=== PATIENT | female | born 1965 | race Caucasian/White ===

== ENCOUNTER 2020-04-23 10:07 | Outpatient (REF) | payer OTHER, SELFPAY ==
--- NOTE | 2020-04-23 | XR_ITS ---
EXAMINATION: XR SACRUM AND COCCYX CLINICAL INFORMATION: Lumbosacral pain COMPARISON: None TECHNIQUE: 3 views of the sacrum/coccyx FINDINGS: There is no fracture or cortical disruption. Appropriate alignment of the sacrum. The coccyx is well aligned. Lumbosacral junction is intact. The sacroiliac joints are symmetric. The hips are well aligned. The bowel gas pattern is unremarkable. Left pelvic phleboliths are noted. XR/XR sacrum coccyx min 2V IMPRESSION: No suspicious findings of the sacrum/coccyx. Appropriate appearance of the sacroiliac joints.
== END 2020-04-23 10:08 | disposition home or self-care (01) ==
LOC: HO.HMGCX 10:07
PROVIDERS: PCP Internal Medicine; Visit Provider Internal Medicine
DX: M54.5 Low back pain (principal)
CPT/HCPCS: 72220

== ENCOUNTER 2021-05-18 11:14 | Outpatient (REF) | payer OTHER, SELFPAY ==
--- NOTE | ~2021-05-18 | MM_ITS ---
EXAMINATION: MM SCREENING DIGITAL BREAST TOMOSYNTHESIS, BILATERAL CLINICAL INFORMATION: Screening. Asymptomatic. The lifetime risk of breast cancer based on the Tyrer-Cuzick Model is 4.3%. COMPARISON: Mammography: January 24, 2020 and July 30, 2018 TECHNIQUE: Digital breast tomosynthesis is performed in both the craniocaudal and mediolateral oblique views along with computer-aided detection (CAD). Synthesized 2D images are generated from the tomosynthesis. FINDINGS: The breasts are heterogeneously dense, which may obscure small masses (ACR BI-RADS breast composition Category c). There are no significant masses, abnormal calcifications, or other abnormalities. MM/MM tomosynthesis screening BI IMPRESSION: There are no significant changes from prior study. ASSESSMENT: BI-RADS 1: Negative RECOMMENDATION: Routine annual mammography screening. This patient's information was entered into a reminder system with a target due date for their next mammogram.
== END 2021-05-18 11:15 | disposition home or self-care (01) ==
LOC: HO.MAMMO 11:14
PROVIDERS: Visit Provider Internal Medicine
DX: Z12.31 Encounter for screening mammogram for malignant neoplasm of breast (principal)
CPT/HCPCS: 77063; 77067

== ENCOUNTER 2021-10-08 07:35 | Outpatient (REF) | payer OTHER, SELFPAY ==
[2021-10-08 13:00] LABS: Vitamin D 25-OH Total 54.5 ng/mL (>30)
[2021-10-08 13:22] LABS: Alanine Aminotransferase 11 U/L (0-31); Anion Gap 13 (12-20); Aspartate Amino Transferase 19 U/L (5-31); Blood Urea Nitrogen 20 mg/dL (9-16); Carbon Dioxide 26 mmol/L (22-29); Chloride 108 mmol/L (96-108); Cholesterol 210 mg/dL; Estimated Glomerular Filt Rate > 60; Glucose Fasting 96 mg/dL (60-99); HDL Cholesterol 76 mg/dL; LDL Cholesterol Calculated 120 mg/dl; Potassium 4.3 mmol/L (3.3-5.1); Sodium 143 mmol/L (135-145); Triglycerides 73 mg/dL
== END 2021-10-08 07:36 | disposition home or self-care (01) ==
LOC: HO.HMGCLDS 07:35
PROVIDERS: Visit Provider Internal Medicine
DX: Z00.01 Encounter for general adult medical examination with abnormal findings (principal); I10 Essential (primary) hypertension
CPT/HCPCS: 36415; 80048; 80061; 82306; 84450; 84460; 86787

== ENCOUNTER → 2022-03-24 12:19 | Outpatient (BNVA) | payer OTHER, SELFPAY | PROVIDERS: PCP Internal Medicine; Referring Provider Internal Medicine; Visit Provider Physician Assistant | DX: Z01.818 Encounter for other preprocedural examination (principal); R12 Heartburn | CPT/HCPCS: 99202 ==

== ENCOUNTER 2022-05-20 10:45 | Outpatient (REF) | payer OTHER, SELFPAY ==
--- NOTE | ~2022-05-20 | MM_ITS ---
EXAMINATION: MM SCREENING DIGITAL BREAST TOMOSYNTHESIS, BILATERAL CLINICAL INFORMATION: Screening. Asymptomatic. The lifetime risk of breast cancer based on the Tyrer-Cuzick Model is 8%. COMPARISON: Mammography: 05/18/2021, 01/24/2020, 07/30/2018 (baseline) TECHNIQUE: Digital breast tomosynthesis is performed in both the craniocaudal and mediolateral oblique views along with computer-aided detection (CAD). Synthesized 2D images are generated from the tomosynthesis. FINDINGS: There are scattered areas of fibroglandular density (ACR BI-RADS breast composition Category b). There is a 1 cm smooth nodule with fine incomplete rim calcification or tattoo artifact right axilla 11 cm from the nipple on the MLO view, not seen on prior studies. No visible fatty hilus. Lesion is close to the skin and could be dermal in origin. Patient will be recalled for additional imaging. Otherwise, there is no axillary adenopathy and skin contours are smooth. The breast parenchymal pattern is similar to prior exams. There is no developing density or interval mass or architectural abnormality. No abnormal calcifications. MM/MM tomosynthesis screening BI IMPRESSION: Right: -1 cm nodule with peripheral rim calcification or tattoo artifact residing close to skin. No visible fatty hilus. Possible dermal lesion. Left: -No mammographic evidence of malignancy. ASSESSMENT: BI-RADS 0: Incomplete - Need Additional Imaging Evaluation RECOMMENDATION: 1. Assess for dermal lesion and obtain MLO view with dermal marker if applicable. 2. Otherwise, targeted right ultrasound. 3. Radiology department staff will contact the patient for additional imaging. This patient's information was entered into a reminder system with a target due date for their next mammogram.
== END 2022-05-20 10:46 | disposition home or self-care (01) ==
LOC: HO.MAMMO 10:45
PROVIDERS: PCP Internal Medicine; Visit Provider Internal Medicine
DX: Z12.31 Encounter for screening mammogram for malignant neoplasm of breast (principal)
CPT/HCPCS: 77063; 77067

== ENCOUNTER 2022-06-03 12:42 | Outpatient (REF) | payer OTHER, SELFPAY ==
--- NOTE | ~2022-06-03 | US_ITS ---
EXAMINATION: MM DIAGNOSTIC DIGITAL BREAST TOMOSYNTHESIS, RIGHT CLINICAL INFORMATION: Right breast nodule with calcifications. COMPARISON: Mammography: 05/20/2022 and studies dating back to 07/30/2018. TECHNIQUE: Digital breast tomosynthesis is performed. 2D images are generated from the tomosynthesis. The following views are obtained: Right mediolateral oblique. FINDINGS: The breasts are heterogeneously dense, which may obscure small masses (ACR BI-RADS breast composition Category c). There is persistence of a 1 cm circumscribed density which appears to lie at the level of the skin surface. There appear to be a few calcifications present. Targeted ultrasound evaluation to palpable area in the axilla demonstrated a heterogeneous and hypoechoic lesion, which may lie within breast tissue, extending superficially to the hypodermis and dermis. The lesion measures 8 x 6 x 9 mm in size. No definite pore to the skin is identified. This could represent a sebaceous cyst or epidermal inclusion cyst. There is a small amount of vascular flow present. The lesion is wider than it is tall. No distal sound shadowing is seen. Hamartoma could also have this appearance and possible malignancy would be much less likely. Patient is being scheduled to see a line installation supervisor according to the patient. Results are discussed with the patient at time of visit. US/US breast RT limited IMPRESSION: Mammographic finding is seen to correspond to a lesion likely representing sebaceous cyst or epidermal inclusion cyst. ASSESSMENT: BI-RADS 3: Probably benign. RECOMMENDATION: Clinical follow up This patient's information was entered into a reminder system with a target due date for their next mammogram.
== END 2022-06-03 12:43 | disposition home or self-care (01) ==
LOC: HO.MAMMO 12:42
PROVIDERS: PCP Internal Medicine; Visit Provider Internal Medicine
DX: R92.1 Mammographic calcification found on diagnostic imaging of breast (principal)
CPT/HCPCS: 76642; 77061; 77065

== ENCOUNTER 2022-08-16 09:43 | Outpatient (REF) | payer OTHER, SELFPAY ==
[2022-08-19 05:24] LABS: HPV mRNA E6/E7 rflx Not Detected (Not Detected)
== END 2022-08-16 09:44 | disposition home or self-care (01) ==
LOC: HO.LNP 09:43
PROVIDERS: PCP Internal Medicine; Visit Provider Advanced Practice Midwife
DX: Z01.419 Encounter for gynecological examination (general) (routine) without abnormal findings (principal); Z11.51 Encounter for screening for human papillomavirus (HPV)
CPT/HCPCS: 87624; 88142

== ENCOUNTER 2022-11-09 10:18 | Day surgery (SDC) | payer OTHER, SELFPAY ==
[2022-11-04 16:02] VITALS: BMI 19.7
[2022-11-09 10:33] VITALS: BP 138/81; PULSE 66; RESP 16; TEMP 36.6; O2SAT 100
--- NOTE | 2022-11-09 10:53 | P.CONAN_ITS ---
[facility] Active Problems Active Problems: All Active Problems (Updated 08/24/22 @ 15:51 by Jody Gamez CNM) Breast cancer screening (Acute) Cervical cancer screening (Acute) Well woman exam with routine gynecological exam (Acute) Former smoker (Acute) Heartburn (Acute) Colon cancer screening (Acute) Past Medical History Medical History Acute anxiety Epistaxis, recurrent Former smoker Heartburn Tobacco abuse disorder Family History Family History Maternal Grandmother Alzheimers disease Family history of problems with anesthesia: No Surgical History Surgical History No pertinent past surgical history History of Problems with Anesthesia: No Social History Social History (Updated 08/16/22 @ 09:54 by JAMES North) Housing: House Alcohol intake: current Alcohol intake frequency: holidays/special occasions only Patient Tobacco Use Status: Former Tobacco user Years Smoked: 30 e-Cigarette/Vaping Use: Never Used Second Hand Smoke Exposure: No Use of substances other than those prescribed or required for medical reasons: No Advance Directives: No Advance Directives Information Provided: Yes Nutrition Risks: No Nutritional Risk Current occupational status: unemployed Cognitive needs: No Hearing needs: No Vision needs: No Meds Allergies Allergy/AdvReac Type Severity Reaction Status Date / Time No Known Allergies Allergy Verified 08/16/22 09:47 Exam Exam Date and Time: November 09, 2022 1053 Height,Weight and Vital Signs: Height 5 ft 7 in Weight 57.153 kg Last Vital Signs Temp 97.8 F 11/09/22 10:33 Pulse 66 11/09/22 10:33 Resp 16 11/09/22 10:33 BP 138/81 11/09/22 10:33 Pulse Ox 100 11/09/22 10:33 O2 Del Method Room Air 11/09/22 10:33 Airway Mallampati Class: II TM Dist: >3cm Neck ROM: Full Assessment and Plan Assessment Anesthesia Assessment: Anesthesia Plan Discussed and Chart Reviewed Final Anesthetic Review Family History of Problems with Anesthesia: No History of Problems with Anesthesia: No NPO: Yes ASA Class: II Final Preanesthetic Review: No Changes in Pt Med Stat, Meds/Allgs Chart Reviewed , Consent Obtained/Reviewed and Anes Risks/Benef Reviewed Patient Risk: Low Procedure Risk: Low Anesthetic Plan Anesthetic Plan: MAC: Disposition: Standard PACU
--- NOTE | 2022-11-09 10:57 | MHC.SHP ---
Pre-Procedural Eval Section A Date of Service: 11/09/22 Section B Chief Complaint: Heartburn Relevant Family History (Specify if Yes): No Relevant Social History: None Present Medications: see Short Stay Collaborative assessment Medical History: Significant History (Acute anxiety Epistaxis, recurrent Former smoker Heartburn Tobacco abuse disorder) History of Previous Operations: No relevant previous surgery Allergies: Allergies Allergy/AdvReac Type Severity Reaction Status Date / Time No Known Allergies Allergy Verified 08/16/22 09:47 Review of Systems Sugical H&P ROS: Negative: Constitution, Cardiovascular, Respiratory, Neurological, Psychiatric, Hem-Onc, Allergic/Immunologic, Gastrointestinal, Genitourinary, Musculoskeletal, Integumentary, Endocrine and Eyes/Ears/Nose/Throat Exam Surgical H&P Exam: Normal: HEENT, Normal: Heart, Normal: Lungs, Normal: Extremities, Normal: Abdomen, Normal: Skin and Normal: Neurological Plan Diagnosis/Plan: Unchanged I have reviewed the history and physical and performed a pertinent physical examination on my patient. No changes have occurred unless specified. Time Spent With Patient Time: Total time managing care of this patient today ____ minutes.
--- NOTE | 2022-11-09 11:13 | W.PM.OPN ---
Operative Note Operative Note Date of Service: 11/09/22 Narrative: Procedure Description: EGD Indication: heartburn Anesthesia: MAC FLEXIBLE TRANSORAL UPPER GASTROINTESTINAL ENDOSCOPY UPPER ENDOSCOPY Consent: Indications for the procedure and potential complications of bleeding, perforation, reaction to medications and missed diagnosis were discussed with the patient and informed consent was obtained. Instrument: Olympus GIF H 190 J mid size upper endoscope Monitoring: Vital signs and clinical assessment, continuous EKG monitoring, Pulse oximetry, Carbon Dioxide monitoring and blood pressure monitoring were done throughout the procedure. Procedure: The patient was placed in the left lateral decubitis position and pre-procedure medications were administered and a bite block was placed. The endoscope was inserted into the mouth and advanced under direct vision to the third part of duodenum. A careful inspection was made as the upper endoscope was withdrawn including a retroflexed examination of the proximal stomach; Findings and interventions are described below. Findings: Larynx:normal Esophagus: GE junction at 37 cm, diaphragm hiatus at 37 cm, mild inflammation at GEJ, bx taken also from distal and proximal esophagus Stomach: Patchy gastric erythema. Biopsies were obtained. Grade 3 flap valve on retroflexed examination of the cardia. LEs was lax. Duodenum: Mild bulbar erythema, bx taken Intervention: Biopsies as noted above Impression/Findings: mild duodenitis and gastritis lax LES PLAN: GERD precautions cont with PPi as it is helping
[2022-11-09 11:33] VITALS: BP 104/63; PULSE 94; RESP 17; TEMP 36.2; O2SAT 99
[2022-11-09 11:49] VITALS: BP 115/74; PULSE 60; RESP 17; TEMP 36.4; O2SAT 97
== END 2022-11-09 12:36 | disposition home or self-care (01) ==
PROVIDERS: PCP Internal Medicine; Visit Provider Internal Medicine Gastroenterology
PROC: 0DJ08ZZ Inspection of Upper Intestinal Tract, Via Natural or Artificial Opening Endoscopic (ICD-10-PCS; CPT 43235; principal; 2022-11-09 12:10)
DX: K21.9 Gastro-esophageal reflux disease without esophagitis (principal); K29.50 Unspecified chronic gastritis without bleeding; K29.80 Duodenitis without bleeding; K22.4 Dyskinesia of esophagus; K44.9 Diaphragmatic hernia without obstruction or gangrene; F41.1 Generalized anxiety disorder; R04.0 Epistaxis; Z79.899 Other long term (current) drug therapy; Z87.891 Personal history of nicotine dependence
CPT/HCPCS: 43239; 88305; 88342

== ENCOUNTER 2022-12-28 11:25 | Outpatient (AMB) | payer OTHER, SELFPAY ==
--- NOTE | 2022-12-28 11:27 | A.OFFVIS_ITS ---
Intake Vital Signs 12/28/22 11:30 Height 5 ft 7 in Weight 124 lb BMI 19.4 BP 135/75 Blood Pressure Location Lt brachial Position Sitting Pulse 74 Intake Visit Reasons: S/p egd-reyes Intake Note: Patient follow up fro EGD results. Patient denies any GI issues. 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 She has been taking pantoprazole 40 mg daily with very good response as well as had discontinued tobacco. She is overall feeling well however if she does omit PPI her symptoms recur. Appetite is good Here reviewed procedure report and pathology She had a Cologuard negative August of this year repeat colon cancer screening 2025 No nausea, vomiting, hematemesis, hematochezia fever chills PFSH Medical History Acute anxiety Epistaxis, recurrent Former smoker Heartburn Tobacco abuse disorder Surgical History History of esophagogastroduodenoscopy (EGD) No pertinent past surgical history Family History Maternal Grandmother Alzheimers disease Social History Housing: House Alcohol intake: current Alcohol intake frequency: holidays/special occasions only Patient Tobacco Use Status: Former Tobacco user Years Smoked: 30 e-Cigarette/Vaping Use: Never Used Second Hand Smoke Exposure: No Current occupational status: unemployed Cognitive needs: No Hearing needs: No Vision needs: No Female Reproductive History Menstrual Age of Menarche: 19 Review of Systems Const All systems reviewed & are unremarkable except as noted in HPI and below Physical Exam Vital Signs: Last Vital Signs Pulse 74 12/28/22 11:30 BP 135/75 12/28/22 11:30 BMI result Body Mass Index 19.4 Const General: cooperative, healthy appearing, comfortable and no acute distress Orientation/consciousness: patient oriented x3 Limitations: no limitations Neuro General: patient oriented x3 Psych Appearance: grossly normal and well kempt Mental Status: mental status grossly normal Speech and movement: Normal speech and movement present and Clear speech present Affect: normal affect Attitude: cooperative Thought content: Normal thought content present Insight: Good insight present (Psych) Judgement: Good judgement present (Psych) Results Reviewed Results Reviewed: Impression/Findings: mild duodenitis and gastritis lax LES PLAN: GERD precautions cont with PPi as it is helping Name:Francesca Leyva Age/Sex: 57/F Attending: Annette Reyes MD : [id number] Submitted by: Annette Reyes MD Copies to: Caprice Alva MD MR #: [id number] ? Status: [facility] [place], [place] Collected: 11/09/22 Location: [facility] Received: 11/09/22 Diagnosis A.? Duodenum, biopsy:? Duodenal mucosa within normal limits. B.? Stomach, biopsy:? Antral-type and oxyntic mucosa with moderate chronic inactive inflammation; no Helicobacter organisms seen. C.? GE junction, biopsy: - Cardiofundic-type mucosa with mild chronic inactive inflammation; no intestinal metaplasia seen. - Squamous mucosa within normal limits. D.? Esophagus, distal, biopsy: - Small fragment of cardiofundic-type mucosa with mild chronic inactive inflammation; no intestinal metaplasia seen. - Squamous epithelium within normal limits. E.? Esophagus, proximal, biopsy:? Squamous epithelium within normal limits; no inflammation seen. Clinical History Pre-Op Dx:? GERD Post-Op Dx: Lax LES, gastritis Assessment & Plan Assessment & Plan (1) Heartburn: Comment: His very good response with pantoprazole 40 mg Code(s): R12 - Heartburn Plan: Continue PPI Avoid culprits (2) Colon cancer screening: Comment: Negative Cologuard 2022 Normal bowel pattern Code(s): Z12.11 - Encounter for screening for malignant neoplasm of colon Plan: Colon cancer screening due 2025 Plan Continue ppi reflux precautions low fodmap colon cancer screening 2025 Medications: Changed From pantoprazole take 1 hour ac 40 mg PO DAILY PRN 90 tabs 0RF heartburn To pantoprazole take 1 hour ac 40 mg PO DAILY PRN 90 tabs 2RF heartburn 30 days Patient Instructions: Pleasant 57-year-old female persistent acid reflux follows up after recent EGD We reviewed reflux precautions She will continue pantoprazole 40 mg daily and avoid culprits Encouraged to call questions or concerns Coding Level of Care Code Est Pt Level 3 (21137) Diagnoses Heartburn R12 Colon cancer screening Z12.11 Time Spent (min) 20
[2022-12-28 11:30] VITALS: BP 135/75; PULSE 74; BMI 19.4
== END 2022-12-28 13:59 | disposition home or self-care (01) ==
PROVIDERS: PCP Internal Medicine; Visit Provider Physician Assistant
DX: K21.9 Gastro-esophageal reflux disease without esophagitis (principal); R12 Heartburn
CPT/HCPCS: 99213

== ENCOUNTER → 2022-12-28 11:25 | Outpatient (BNVA) | payer OTHER, SELFPAY | PROVIDERS: PCP Internal Medicine; Visit Provider Physician Assistant | DX: Z12.11 Encounter for screening for malignant neoplasm of colon (principal); R12 Heartburn; Z87.891 Personal history of nicotine dependence | CPT/HCPCS: 99212 ==

== ENCOUNTER 2023-04-26 12:26 | Outpatient (AMB) | payer OTHER, SELFPAY ==
--- NOTE | 2023-04-26 12:42 | MHC.PC.OV ---
Vital Signs 04/26/23 12:44 Height 5 ft 7 in Weight 127 lb BMI 19.9 BP 108/70 Blood Pressure Location Lt brachial Position Sitting Pulse 99 Pulse Source Pulse Oximeter Pulse Oximetry (%) 98 Oxygen Delivery Method Room Air Intake Visit Reasons: annual PE- NEEDS PHQ9+THRIVE Intake Note: Patient here for annual physical. no new issues. Allergies No Known Allergies Allergy (Verified 07/14/23 05:12) Medication List - Last Reconciled 04/26/23 by Caprice Alva MD pantoprazole 40 mg PO DAILY PRN 30 days varenicline (Chantix) 1 mg PO BID 90 days Tobacco use date assessed: 04/26/23 Dental Screening Dental Screen Date: 04/26/23 Did you have a dental visit in the last 12 months?: Yes Did you have a dental problem in the last 6 months where you did not have access to dental care?: No Was dental information given to patient?: Patient has dentist HPI annual PE- NEEDS PHQ9+THRIVE HPI Details 58-year-old lady here today for her physical exam. She is up-to-date with her screening mammogram due again next month. Had a negative Cologuard test done earlier this year. Goes to [facility] for routine Pap and pelvic exam, last Pap was done earlier this year with negative findings. She has had COVID vaccines in the past but does not want to get a booster nor does she want to get any further vaccinations. She is a former smoker, able to quit with the help of Chantix. Has chronic GERD, controlled on pantoprazole, had an upper endoscopy done by Dr. Waterman earlier this year. [facility] Medical History Former smoker Tobacco abuse disorder Heartburn Acute anxiety Epistaxis, recurrent Surgical History History of esophagogastroduodenoscopy (EGD) No pertinent past surgical history Family History Maternal Grandmother Alzheimers disease Social History Housing: House Alcohol intake: current Alcohol intake frequency: holidays/special occasions only Patient Tobacco Use Status: Former Tobacco user Years Smoked: 30 e-Cigarette/Vaping Use: Never Used Second Hand Smoke Exposure: No Current occupational status: unemployed Cognitive needs: No Hearing needs: No Vision needs: No Female Reproductive History Menstrual Age of Menarche: 19 Questionnaire PHQ-9 Over the last 2 weeks, how often have you been bothered by any of the following problems? 1. Little interest or pleasure in doing things: not at all 2. Feeling down, depressed, or hopeless: not at all 3. Trouble falling or staying asleep, or sleeping too much: not at all 4. Feeling tired or having little energy: not at all 5. Poor appetite or overeating: not at all 6. Feeling bad about yourself - or that you are a failure or have let yourself or your family down: not at all 7. Trouble concentrating on things, such as reading the newspaper or watching television: not at all 8. Moving or speaking so slowly that other people could have noticed. Or the opposite - being so fidgety or restless that you have been moving around a lot more than usual: not at all 9. Thoughts that you would be better off or of hurting yourself in some way: not at all Total score: 0 Depression Screening Interpretation: Negative Depression Screening Done: Yes 63195 - PHQ-9 Billing: Yes Source: Developed by Drs. Devonte Oakley, Angelita Renner, Serge Whitaker and colleagues, with an educational jasiel from [employer]. Thrive Questionnaire Date Thrive assessed: 04/26/23 I am a: Patient What is your living situation today?: I have a steady place to live Within the past 12 months, did the food you bought not last and you didn't have the money to get more?: Never true Within the past 12 months, did you worry whether your food would run out before you got money to buy more?: Never true Do you have trouble paying for medicines?: No Do you have trouble getting transportation to medical appointments?: No Do you have trouble paying your heating and electricity bill?: No Do you have trouble taking care of your child, family member or friend?: No Do you have trouble with day-to-day activities such as bathing, preparing meals, shopping, managing finances, etc.?: No Are you currently unemployed and looking for a job?: No Are you interested in more education?: No Please select the resources that you would like help with: None AUDIT C Alcohol Use Questionnaire (AUDIT-C) 1. How often do you have a drink containing alcohol?: 2-4 times a month 2. How many drinks containing alcohol do you have on a typical day when you are drinking?: 1 or 2 3. How often do you have six or more drinks on one occasion?: Never Total Score: 2 Score Reviewed/Action Taken: No CARL-7 AMB Questionnaire CARL-7 Date CARL - 7 assessed: 04/26/23 Feeling nervous, anxious, or on edge: 0 = Not at all Not being able to stop or control worryin = Not at all Worrying too much about different things: 0 = Not at all Trouble relaxin = Not at all Being so restless that it is hard to sit still: 0 = Not at all Becoming easily annoyed or irritable: 0 = Not at all Feeling afraid as if something awful might happen: 0 = Not at all Total CARL-7 score (0-4 normal; 5-9 mild; 10-14 moderate; 15-21 severe): 0 Source: Developed by Drs. Devonte Oakley, Angelita Renner, Serge Whitaker and colleagues, with an educational jasile from [employer]. CARL-7 Assessment Billing CARL-7 Assessment Tool: CARL-7 Assessment 98512 Review of Systems Const Denies body aches, Denies fever(s), Denies headache(s) and Denies weakness Eyes Details: Wears cheaters Reports no additional complaints ENT Denies dizziness, Denies headache(s), Denies nasal congestion, Denies nasal discharge and Denies sore throat Card Denies chest pain, Denies lightheadedness and Denies dyspnea Resp Denies chest congestion, Denies cough and Denies dyspnea GI Denies melena, Denies bloating, Denies hematochezia, Denies change in bowel habits and Reports heartburn (Occasional, takes pantoprazole) Reports no additional complaints Musc Reports no additional complaints Skin/Breast Denies lesions and Denies rash Neuro Denies dizziness, Denies headache(s) and Denies weakness Psych Reports no additional complaints Endo Reports no additional complaints Mika/Lymph Denies easy bleeding and Denies easy bruising Aller/Immun Reports no additional complaints Physical exam (Primary Care) Vital Signs: Last Vital Signs Pulse 99 04/26/23 12:44 BP 108/70 04/26/23 12:44 Pulse Ox 98 04/26/23 12:44 Oxygen Delivery Method Room Air 04/26/23 12:44 BMI result Body Mass Index 19.9 Tobacco/Smoking Status: Tobacco use Status Tobacco use date assessed 04/26/23 04/26/23 12:47 Patient Tobacco Use Status Former Tobacco user 04/26/23 12:44 e-Cigarette/Vaping Use Never Used 04/26/23 12:44 Relapse Prevention: discussed the importance of a supportive environment and discussed extending NRT PHQ-9: PHQ-9 Score PHQ-9: Total score 0 04/26/23 13:28 Depression Screening Interpretation: Negative Thrive Assessment: Date of Thrive Assessment Date Thrive assessed 04/26/23 04/26/23 13:14 Const Other: Alert oriented x3, no acute cardiorespiratory distress noted ambulatory with normal gait Orientation/consciousness: patient oriented x3 HENMT Ears: hearing grossly normal bilaterally, TM's normal bilaterally and EAC's normal General nose exam: Normal external nose present and Normal nasal mucous membranes and turbinates present Mouth: Normal oral and palatal mucosa present and moist mucous membranes Eyes General: appearance normal, both eyes and all related structures Neck Neck: Yes full ROM, Yes no lymphadenopathy, Yes no meningeal signs, Yes supple and Yes no JVD Chest Breast/axilla palpation: normal palpation of the breasts Resp Auscultation: clear to auscultation bilaterally Cardio Other: S1 and S2 present regular rate and rhythm GI Other: Normal bowel sounds, soft, nontender, no mass palpated General: Yes no CVA tenderness Back/Spine/Pelvis Back: no CVA tenderness Skin General skin exam: no rashes or lesions noted Neuro General: patient oriented x3, gait normal, Normal light touch and pain sensation, no meningeal signs, no focal motor deficits, CN's II-XI intact bilaterally and normal sensation to monofilament Extrem General: Yes normal to inspection, Yes full ROM, Yes no joint enlargement, Yes no pedal edema, Yes no calf tenderness and Yes normal gait Psych Appearance: grossly normal Mental Status: mental status grossly normal Speech and movement: Normal speech and movement present Affect: normal affect Attitude: cooperative Assessment and Plan Assessment & Plan (1) Annual visit for general adult medical examination with abnormal findings: Code(s): Z00. - Encounter for general adult medical examination with abnormal findings Plan: Will check appropriate labs. Continue regular dental visit every 6 months and regular eye exams, at least every 2 years. Take adequate calcium in diet and vitamin-D 3 at 2000 IU per cap once a day, in addition to weight-bearing exercises to help maintain good muscle tone and weight control. Instructed to do self-breast exam, and continue to get yearly mammogram, currently up-to-date. Includes yearly flu vaccine, reminded to get her COVID booster, and recommended to get her Shingrix vaccination. Up-to-date with colon cancer screening had a negative Cologuard done earlier this Orders: Orders Lipid Panel 04/26/23 Z00.01 - Encounter for general adult medical examination with abnormal findings, Z13.220 - Encounter for screening for lipoid disorders, Z13.1 - Encounter for screening for diabetes mellitus Glucose Fasting 04/26/23 Z00.01 - Encounter for general adult medical examination with abnormal findings, Z13.220 - Encounter for screening for lipoid disorders, Z13.1 - Encounter for screening for diabetes mellitus Vitamin D 25-OH Total 04/26/23 Z00.01 - Encounter for general adult medical examination with abnormal findings, Z13.220 - Encounter for screening for lipoid disorders, Z13.1 - Encounter for screening for diabetes mellitus, Z78.0 - Asymptomatic menopausal state Coding Level of Care Code Est Pt Prev Care 40-64y(94147) Diagnoses Annual visit for general adult medical examination with abnormal findings Z. Additional Codes CARL-7 Assessment Billing - CARL-7 Assessment Tool: CARL-7 Assessment 52766 ([id number])
[2023-04-26 12:44] VITALS: BP 108/70; PULSE 99; O2SAT 98; BMI 19.9
== END 2023-04-26 13:25 | disposition home or self-care (01) ==
PROVIDERS: Visit Provider Internal Medicine
DX: Z00.00 Encounter for general adult medical examination without abnormal findings (principal); Z87.891 Personal history of nicotine dependence
CPT/HCPCS: 99396

== ENCOUNTER 2023-07-05 13:18 | Outpatient (AMB) | payer OTHER, SELFPAY ==
[2023-07-05 13:20] VITALS: BP 118/70; PULSE 82; TEMP 36.1; O2SAT 98; BMI 19.7
--- NOTE | 2023-07-05 13:20 | AM.OFFWIN_ITS ---
Intake Vital Signs 07/05/23 13:20 Height 5 ft 7 in Weight 126 lb BMI 19.7 BP 118/70 Blood Pressure Location Lt brachial Position Sitting Pulse 82 Pulse Source Pulse Oximeter Temp 96.9 F Temp Source Temporal Artery Scan Pulse Oximetry (%) 98 Oxygen Delivery Method Room Air Intake Visit Reasons: EP Wax removal Intake Note: pt is here today for wax removal Patient Tobacco Use Status: Former Tobacco user Allergies No Known Allergies Allergy (Verified 07/05/23 14:08) Medication List - Last Reconciled 07/05/23 by Willie Hayes MD pantoprazole 40 mg PO DAILY PRN 30 days polymyxin B sulf-trimethoprim 10,000 unit- 1 mg/mL 1 drp ophthalmic (eye) Q3H 7 days sucralfate 1 g (10 mL) PO BID 4 weeks varenicline (Chantix) 1 mg PO BID 90 days Do you need a note to return to daycare/school/sports/work: No HPI EP Wax removal HPI Details 58 yr old female presents to the office for a sick visit. Patient is reporting difficulty hearing with the left ear. [facility] Medical History Former smoker Tobacco abuse disorder Heartburn Acute anxiety Epistaxis, recurrent Surgical History History of esophagogastroduodenoscopy (EGD) No pertinent past surgical history Family History Maternal Grandmother Alzheimers disease Social History Housing: House Alcohol intake: current Alcohol intake frequency: holidays/special occasions only Patient Tobacco Use Status: Former Tobacco user Years Smoked: 30 e-Cigarette/Vaping Use: Never Used Second Hand Smoke Exposure: No Current occupational status: unemployed Cognitive needs: No Hearing needs: No Vision needs: No Female Reproductive History Menstrual Age of Menarche: 19 Physical Exam Vital Signs: Last Vital Signs Temp 96.9 F 07/05/23 13:20 Pulse 82 07/05/23 13:20 BP 118/70 07/05/23 13:20 Pulse Ox 98 07/05/23 13:20 Oxygen Delivery Method Room Air 07/05/23 13:20 BMI result Body Mass Index 19.7 HEENT Other: Left ear: Wax present. Ear canal is congested Office Procedures Cerumen Removal From which ear canal was the cerumen removed: bilateral Removal: irrigation and otoscope w/curette Notes: patient tolerated procedure well [id number] Wax Removal by Spoon/Curette Assessment & Plan Assessment & Plan (1) Otitis externa of both ears: Code(s): H60.93 - Unspecified otitis externa, bilateral Plan Patient tolerated wax disimpaction well. Cortisporin drops sent Orders: Orders AMB Cerumen Removal Today H61.23 - Impacted cerumen, bilateral Coding Level of Care Code Est Pt Level 3 (06150) Diagnoses Otitis externa of both ears H60.93 CPT Codes Office Procedure - CPT: 92661-Zrm Wax Removal by Spoon/Curette ([id number])
== END 2023-07-05 14:36 | disposition home or self-care (01) ==
PROVIDERS: PCP Internal Medicine; Visit Provider Internal Medicine
DX: H60.93 Unspecified otitis externa, bilateral (principal); H61.22 Impacted cerumen, left ear
CPT/HCPCS: 69210; 99213

== ENCOUNTER 2023-07-13 10:27 | Outpatient (AMB) | payer OTHER, SELFPAY ==
[2023-07-13 10:32] VITALS: BP 122/72; PULSE 95; O2SAT 99
--- NOTE | 2023-07-13 10:32 | MHC.PC.OV ---
Vital Signs 07/13/23 10:32 Height 5 ft 7 in Weight 128 lb BMI 20.0 BP 122/72 Blood Pressure Location Rt brachial Position Sitting Pulse 95 Pulse Source Pulse Oximeter Pulse Oximetry (%) 99 Oxygen Delivery Method Room Air Intake Visit Reasons: Ear blockage Intake Note: Pt is here today c/o Lt ear blocked Allergies No Known Allergies Allergy (Verified 07/14/23 05:12) Medication List - Last Reconciled 07/14/23 by Caprice Alva MD ciprofloxacin-dexamethasone 0.3-0.1 % 4 drps otic (ears) Q12H 7 days pantoprazole 40 mg PO DAILY PRN 30 days polymyxin B sulf-trimethoprim 10,000 unit- 1 mg/mL 1 drp ophthalmic (eye) Q3H 7 days sucralfate 1 g (10 mL) PO BID 4 weeks varenicline (Chantix) 1 mg PO BID 90 days Tobacco use date assessed: 07/13/23 Dental Screening Dental Screen Date: 07/13/23 Did you have a dental visit in the last 12 months?: Yes Did you have a dental problem in the last 6 months where you did not have access to dental care?: No Was dental information given to patient?: Patient has dentist HPI Ear blockage HPI Details 58-year-old lady complaining of pain and discomfort inside her left ear canal, which feels blocked . Symptoms started after recently having had ear lavage at the walk-in clinic. Patient was prescribed Cortisporin ear drops which has not afforded any relief. Denies any discharge, no gait instability or lightheadedness reported. [facility] Medical History Former smoker Tobacco abuse disorder Heartburn Acute anxiety Epistaxis, recurrent Surgical History History of esophagogastroduodenoscopy (EGD) No pertinent past surgical history Family History Maternal Grandmother Alzheimers disease Social History Housing: House Alcohol intake: current Alcohol intake frequency: holidays/special occasions only Patient Tobacco Use Status: Former Tobacco user Years Smoked: 30 e-Cigarette/Vaping Use: Never Used Second Hand Smoke Exposure: No Current occupational status: unemployed Cognitive needs: No Hearing needs: No Vision needs: No Female Reproductive History Menstrual Age of Menarche: 19 Questionnaire PHQ-9 Over the last 2 weeks, how often have you been bothered by any of the following problems? 1. Little interest or pleasure in doing things: not at all 2. Feeling down, depressed, or hopeless: not at all 3. Trouble falling or staying asleep, or sleeping too much: not at all 4. Feeling tired or having little energy: not at all 5. Poor appetite or overeating: not at all 6. Feeling bad about yourself - or that you are a failure or have let yourself or your family down: not at all 7. Trouble concentrating on things, such as reading the newspaper or watching television: not at all 8. Moving or speaking so slowly that other people could have noticed. Or the opposite - being so fidgety or restless that you have been moving around a lot more than usual: not at all 9. Thoughts that you would be better off or of hurting yourself in some way: not at all Total score: 0 Depression Screening Interpretation: Negative Depression Screening Done: Yes 16059 - PHQ-9 Billing: Yes Source: Developed by Drs. Deovnte Oakley, Angelita Renner, Serge Whitaker and colleagues, with an educational jasiel from [employer] Thrive Questionnaire Date Thrive assessed: 07/13/23 I am a: Patient What is your living situation today?: I have a steady place to live Within the past 12 months, did the food you bought not last and you didn't have the money to get more?: Never true Within the past 12 months, did you worry whether your food would run out before you got money to buy more?: Never true Do you have trouble paying for medicines?: No Do you have trouble getting transportation to medical appointments?: No Do you have trouble paying your heating and electricity bill?: No Do you have trouble taking care of your child, family member or friend?: No Do you have trouble with day-to-day activities such as bathing, preparing meals, shopping, managing finances, etc.?: No Are you currently unemployed and looking for a job?: No Are you interested in more education?: No THRIVE Score: 0 AUDIT C Alcohol Use Questionnaire (AUDIT-C) 1. How often do you have a drink containing alcohol?: Monthly or less 2. How many drinks containing alcohol do you have on a typical day when you are drinking?: 1 or 2 3. How often do you have six or more drinks on one occasion?: Never Total Score: 1 CARL-7 AMB Questionnaire CARL-7 Date CARL - 7 assessed: 07/13/23 Feeling nervous, anxious, or on edge: 0 = Not at all Not being able to stop or control worryin = Not at all Worrying too much about different things: 0 = Not at all Trouble relaxin = Not at all Being so restless that it is hard to sit still: 0 = Not at all Becoming easily annoyed or irritable: 0 = Not at all Feeling afraid as if something awful might happen: 0 = Not at all Total CARL-7 score (0-4 normal; 5-9 mild; 10-14 moderate; 15-21 severe): 0 Source: Developed by Drs. Devonte Oakley, Angelita Renner, Serge Whitaker and colleagues, with an educational jasiel from [employer] CARL-7 Assessment Billing CARL-7 Assessment Tool: CARL-7 Assessment 03790 Review of Systems Const All systems reviewed & are unremarkable except as noted in HPI and below Physical exam (Primary Care) Vital Signs: Last Vital Signs Pulse 95 07/13/23 10:32 BP 122/72 07/13/23 10:32 Pulse Ox 99 07/13/23 10:32 Oxygen Delivery Method Room Air 07/13/23 10:32 BMI result Body Mass Index 20.0 Tobacco/Smoking Status: Tobacco use Status Tobacco use date assessed 07/13/23 07/13/23 10:39 Patient Tobacco Use Status Former Tobacco user 07/13/23 10:39 e-Cigarette/Vaping Use Never Used 07/13/23 10:39 PHQ-9: PHQ-9 Score PHQ-9: Total score 0 07/13/23 10:49 Depression Screening Interpretation: Negative Thrive Assessment: Date of Thrive Assessment Date Thrive assessed 07/13/23 07/13/23 10:39 Const Other: Alert oriented x3, no acute distress noted ambulatory normal gait HENMT Head: Yes normocephalic Ears: hearing grossly normal bilaterally, external ears normal and Abnormal EAC present (erythematous swelling in left ear canal, no cerumen or exudate seen) Neck Neck: Yes full ROM, Yes no lymphadenopathy and Yes supple Assessment and Plan Assessment & Plan (1) Acute otitis externa of left ear: Code(s): H60.502 - Unspecified acute noninfective otitis externa, left ear Qualifiers: Otitis externa type: diffuse Qualified Code(s): H60.312 - Diffuse otitis externa, left ear Plan: Prescription sent for ciprofloxacin-dexamethasone 0.3-0.1% suspension, to instill 4 drops in left ear canal twice a day for no more than 7 days. Return to clinic if no improvement of symptoms done Medications: New ciprofloxacin-dexamethasone 0.3-0.1 % 4 drps otic (ears) Q12H 7.5 mL 0RF 7 days Discontinued [id number] 3.5-10,000-1 mg/mL-unit/mL-% Discontinued Reason: Doctor's Order 4 drps otic (ears) Q8H 10 mL 0RF Coding Level of Care Code Est Pt Level 3 (35592) Diagnoses Acute diffuse otitis externa of left ear H60.312 Otitis externa type: diffuse Additional Codes CARL-7 Assessment Billing - CARL-7 Assessment Tool: CARL-7 Assessment 37296 ([id number])
== END 2023-07-13 15:26 | disposition home or self-care (01) ==
PROVIDERS: PCP Internal Medicine; Visit Provider Internal Medicine
DX: H60.312 Diffuse otitis externa, left ear (principal)
CPT/HCPCS: 99213

== ENCOUNTER 2023-08-23 12:23 | Outpatient (REF) | payer OTHER, SELFPAY | END 2023-08-23 12:24 | disposition home or self-care (01) | LOC: HO.MAMMO 12:23 | PROVIDERS: PCP Internal Medicine; Visit Provider Internal Medicine | DX: Z12.31 Encounter for screening mammogram for malignant neoplasm of breast (principal) | CPT/HCPCS: 77063; 77067 ==

== ENCOUNTER → 2023-08-23 12:30 | Outpatient (BNV) | payer OTHER, SELFPAY | PROVIDERS: PCP Internal Medicine; Visit Provider Radiology Diagnostic Radiology | DX: Z12.31 Encounter for screening mammogram for malignant neoplasm of breast (principal) | CPT/HCPCS: 77063; 77067 ==

== ENCOUNTER 2023-08-29 11:25 | Outpatient (AMB) | payer OTHER, SELFPAY ==
--- NOTE | 2023-08-29 11:28 | A.OFFVIS_ITS ---
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 She is doing well with no concerns. Attempting to eat a healthy diet with calcium and vitamin D and stays active with walking/biking exercises. Currently sexually active w/. Denies any vaginal dryness or irritation, uses lubricants. STI testing offered; she declines. Last pap smear; 2022. Last mammogram; 2023. ColoGard is UTD. Denies any family history of breast, ovarian or colon cancer. [facility] Medical History Former smoker Tobacco abuse disorder Heartburn Acute anxiety Epistaxis, recurrent Surgical History History of esophagogastroduodenoscopy (EGD) No pertinent past surgical history Family History Maternal Grandmother Alzheimers disease Social History Housing: House Alcohol intake: current Alcohol intake frequency: holidays/special occasions only Patient Tobacco Use Status: Former Tobacco user Years Smoked: 30 e-Cigarette/Vaping Use: Never Used Second Hand Smoke Exposure: No Current occupational status: unemployed Cognitive needs: No Hearing needs: No Vision needs: No Female Reproductive History Menstrual Age of Menarche: 19 control method: other (vasectomy) Menopause type: natural Total pregnancies: 1 Full term: 1 Number of Living Children: 1 Date of last pap smear: 08/16/22 (neg pap and hpv) Date of Mammogram: 08/23/23 (Birad 1) Review of Systems Const All systems reviewed & are unremarkable except as noted in HPI and below Reports as per HPI Eyes Reports no additional complaints ENT Reports no additional complaints Card Reports no additional complaints Resp Reports no additional complaints GI Reports as per HPI and Reports no additional complaints Reports as per HPI Musc Reports no additional complaints Skin/Breast Reports as per HPI Neuro Reports no additional complaints Psych Reports no additional complaints Endo Reports no additional complaints Mika/Lymph Reports no additional complaints Aller/Immun Reports no additional complaints Physical Exam Vital Signs: Last Vital Signs BP 114/70 08/29/23 11:29 BMI result Body Mass Index 19.1 Const General: cooperative, healthy appearing, no acute distress, well developed and alert Orientation/consciousness: patient oriented x3 HEENT Head: Yes normal to inspection Eyes General: appearance normal, both eyes and all related structures Neck Neck: Yes normal visual inspection Thyroid: Thyroid normal Chest Chest palpation & inspection: normal inspection of the chest and other (no puckering, dimpling, peau de orange, retraction, discharge, masses) Breast/axilla inspection: normal inspection of the breasts Breast/axilla palpation: normal palpation of the breasts Resp Effort & Inspection: normal respiratory effort GI Inspection: Yes normal to inspection Palpation (GI): Soft to palpation Rectal Exam - Female: deferred General: Yes bladder normal to palpation External Female Exam: normal external appearance and normal appearance of the urethra Speculum Exam - Vagina: normal appearance of the vagina, normal palpation and n ormal vaginal discharge Speculum Exam - Cervix: normal appearance of the cervix and normal palpation Bimanual exam- vagina & uterus: normal bimanual exam, normal palpation, uterine size normal, bladder normal to palpation, normal palpation and non-tender Bimanual Exam- Adnexa, other: no masses Skin General skin exam: no rashes or lesions noted Rashes: no rashes Neuro General: patient oriented x3 Cognition (Neuro): normal cognition Extrem General: Yes normal to inspection Psych Attitude: cooperative Thought process: Normal thought process present Assessment & Plan Assessment & Plan (1) Well woman exam with routine gynecological exam: Code(s): Z01.419 - Encounter for gynecological examination (general) (routine) without abnormal findings Plan: Discussed: Current recommendations for pap smears per ASCCP guidelines. Breast awareness, periodic self breast exams and yearly mammogram. Maintain a healthy lifestyle, well balanced diet including Calcium 1,200 mg and Vitamin D 600 IU daily, and routine exercise. Contact the office with any postmenopausal bleeding. Patient verbalizes understanding and agrees to the plan of care. She was given opportunity to ask questions and all questions were answered to the best of my ability. RTO in 1 year for annual obstetrics gyn physician exam. This note is constructed using voice recognition software. While every effort has been made to ensure accuracy, business manager college or university errors may have been included. Coding Level of Care Code Est Pt Prev Care 40-64y(38984) Diagnoses Well woman exam with routine gynecological exam Z01.419
[2023-08-29 11:29] VITALS: BP 114/70; BMI 19.1
== END 2023-08-29 11:46 | disposition home or self-care (01) ==
PROVIDERS: PCP Internal Medicine; Visit Provider Advanced Practice Midwife
DX: Z01.419 Encounter for gynecological examination (general) (routine) without abnormal findings (principal)
CPT/HCPCS: 99396

== ENCOUNTER → 2023-08-29 11:25 | Outpatient (BNVA) | payer OTHER, SELFPAY | PROVIDERS: PCP Internal Medicine; Visit Provider Advanced Practice Midwife | DX: Z01.419 Encounter for gynecological examination (general) (routine) without abnormal findings (principal) | CPT/HCPCS: 99396 ==

== ENCOUNTER 2024-06-10 10:14 | Outpatient (AMB) | payer OTHER, SELFPAY ==
[2024-06-10 10:19] VITALS: BP 110/80; PULSE 78; O2SAT 98; BMI 19.7
--- NOTE | 2024-06-10 10:19 | A.OFFPC_ITS ---
Vital Signs 06/10/24 10:19 Height 5 ft 7 in Weight 126 lb BMI 19.7 BP 110/80 Blood Pressure Location Lt brachial Position Sitting Pulse 78 Pulse Source Pulse Oximeter Pulse Oximetry (%) 98 Oxygen Delivery Method Room Air Intake Visit Reasons: Physical exam Intake Note: Pt is here today for her PE: Last mammogram 08/23/23, papsmear 08/16/22,cologuard 10/06/22 Allergies No Known Allergies Allergy (Verified 06/12/24 02:18) Medication List - Last Reconciled 06/12/24 by Caprice Alva MD pantoprazole 40 mg PO DAILY PRN Tobacco use date assessed: 06/10/24 Dental Screening Dental Screen Date: 06/10/24 HPI Encounter for physical examination HPI Details 59-year-old lady here today for physical exam. She is up-to-date with her screening mammogram, done earlier this year 08/23/2023 with benign findings. She currently sees [facility] for her routine Pap and pelvic exam, with last exam done 2022 with benign findings. Up-to-date with her colon cancer screening, with a negative Cologuard test done 10/06/22. She is a former smoker, able to quit with the help of Chantix. Has chronic GERD, controlled on pantoprazole, s/p upper endoscopy done by Dr. Feliciano last year. [facility] Medical History Former smoker Tobacco abuse disorder Heartburn Acute anxiety Epistaxis, recurrent Surgical History History of esophagogastroduodenoscopy (EGD) No pertinent past surgical history Family History Maternal Grandmother Alzheimers disease Social History Housing: House Alcohol intake: current Alcohol intake frequency: holidays/special occasions only Patient Tobacco Use Status: Former Tobacco user Years Smoked: 30 e-Cigarette/Vaping Use: Never Used Second Hand Smoke Exposure: No Current occupational status: unemployed Cognitive needs: No Hearing needs: No Vision needs: No Female Reproductive History Menstrual Age of Menarche: 19 Menopause type: natural Questionnaire Thrive Questionnaire Date Thrive assessed: 04/24/24 I am a: Patient What is your living situation today?: I have a steady place to live Within the past 12 months, did the food you bought not last and you didn't have the money to get more?: I choose not to answer this question Within the past 12 months, did you worry whether your food would run out before you got money to buy more?: I choose not to answer this question Do you have trouble paying for medicines?: No Do you have trouble getting transportation to medical appointments?: No Do you have trouble paying your heating and electricity bill?: No Do you have trouble taking care of your child, family member or friend?: No Do you have trouble with day-to-day activities such as bathing, preparing meals, shopping, managing finances, etc.?: No Are you currently unemployed and looking for a job?: I choose not to answer this question Are you interested in more education?: I choose not to answer this question Please select the resources that you would like help with: None Currently or been in a relationship where the following occur: No concerns reported THRIVE Score: 0 AUDIT C Alcohol Use Questionnaire (AUDIT-C) 1. How often do you have a drink containing alcohol?: Monthly or less Total Score: 1 CARL-7 AMB Questionnaire CARL-7 Date CARL - 7 assessed: 07/13/23 Source: Developed by Drs. Devonte Oakley, Angelita Renner, Serge Whitaker and colleagues, with an educational jasiel from [employer]. Review of Systems Const Reports as per HPI Eyes Details: goes to [facility] Reports no additional complaints ENT Reports no additional complaints Card Reports no additional complaints Resp Reports no additional complaints GI Reports as per HPI and Reports no additional complaints Reports as per HPI Musc Reports no additional complaints Skin/Breast Reports as per HPI Neuro Reports no additional complaints Psych Reports no additional complaints Endo Reports no additional complaints Mika/Lymph Reports no additional complaints Aller/Immun Reports no additional complaints Physical exam (Primary Care) Vital Signs: Last Vital Signs Pulse 78 06/10/24 10:19 BP 110/80 06/10/24 10:19 Pulse Ox 98 06/10/24 10:19 Oxygen Delivery Method Room Air 06/10/24 10:19 BMI result Body Mass Index 19.7 Tobacco/Smoking Status: Tobacco use Status Tobacco use date assessed 06/10/24 06/10/24 10:23 Patient Tobacco Use Status Former Tobacco user 06/10/24 10:19 e-Cigarette/Vaping Use Never Used 06/10/24 10:19 Thrive Assessment: Date of Thrive Assessment Date Thrive assessed 04/24/24 06/10/24 10:19 Currently or been in a relationship where the following occur: No concerns reported Const Other: Alert oriented x3, no acute cardiorespiratory distress noted ambulatory with normal gait Orientation/consciousness: patient oriented x3 HENMT Ears: hearing grossly normal bilaterally, TM's normal bilaterally and EAC's normal General nose exam: Normal external nose present and Normal nasal mucous membranes and turbinates present Mouth: Normal oral and palatal mucosa present and moist mucous membranes Eyes General: appearance normal, both eyes and all related structures Neck Neck: Yes full ROM, Yes no lymphadenopathy and Yes supple Chest Breast/axilla palpation: normal palpation of the breasts Resp Auscultation: clear to auscultation bilaterally Cardio Other: S1 and S2 present regular rate and rhythm GI Other: Normal bowel sounds, soft, nontender, no mass palpated General: Yes no CVA tenderness Back/Spine/Pelvis Back: no CVA tenderness Skin General skin exam: no rashes or lesions noted Neuro General: patient oriented x3, gait normal, Normal light touch and pain sensation, no focal motor deficits, CN's II-XI intact bilaterally and normal sensation to monofilament Extrem General: Yes normal to inspection, Yes full ROM, Yes no joint enlargement, Yes no pedal edema, Yes no calf tenderness and Yes normal gait Psych Appearance: grossly normal Mental Status: mental status grossly normal Speech and movement: Normal speech and movement present Affect: normal affect Attitude: cooperative Coding Level of Care Code Est Pt Prev Care 40-64y(60352) Diagnoses Encounter for physical examination Z00.00 Heartburn R12 Encounter for counseling regarding advance directives Z71.89 Assessment & Plan Assessment & Plan (1) Encounter for physical examination: Code(s): Z00.00 - Encounter for general adult medical examination without abnormal findings Plan: Will check appropriate labs. Continue with regular dental visit every 6 months and regular eye exams, at least every 2 years. Take adequate calcium in diet and vitamin-D 3 at 2000 IU per cap once a day, in addition to weight-bearing exercises to help maintain good muscle tone and weight control. Instructed to do self-breast exam, and continue with yearly mammogram, . Up-to-date with her colon cancer screening, had a negative Cologuard done last year, up-to-date with her vaccines (2) Heartburn: Code(s): R12 - Heartburn Category: Medical Plan: Continued on pantoprazole 40 mg daily which has been controlling her symptoms (3) Encounter for counseling regarding advance directives: Code(s): Z71.89 - Other specified counseling Plan: Initiated the conversation about Advanced Directives. Advanced Directives help patients prepare for current and future decisions about their medical treatment and place of care. Discussed with patient that it is a process where a patients current condition and prognosis are reviewed, their wishes for information regarding their illness are elicited, and likely medical dilemmas are presented and options discussed. Healthcare proxy form completed today. The form can be amended as needed, reviewed yearly and make changes as needed Orders: Orders Basic Metabolic Panel Fasting 06/10/24 R12 - Heartburn, Z13.1 - Encounter for s creening for diabetes mellitus, Z13.220 - Encounter for screening for lipoid disorders, Z71.89 - Other specified counseling, Z78.0 - Asymptomatic menopausal state Lipid Panel 06/10/24 R12 - Heartburn, Z13.1 - Encounter for screening for diabetes mellitus, Z13.220 - Encounter for screening for lipoid disorders, Z71.89 - Other specified counseling, Z78.0 - Asymptomatic menopausal state Vitamin D 25-OH Total 06/10/24 R12 - Heartburn, Z13.1 - Encounter for screening for diabetes mellitus, Z13.220 - Encounter for screening for lipoid disorders, Z71.89 - Other specified counseling, Z78.0 - Asymptomatic menopausal state
== END 2024-06-10 12:09 | disposition home or self-care (01) ==
PROVIDERS: PCP Internal Medicine; Visit Provider Internal Medicine
DX: Z00.00 Encounter for general adult medical examination without abnormal findings (principal); R12 Heartburn; Z71.89 Other specified counseling

== ENCOUNTER → 2024-06-10 10:14 | Outpatient (BNVA) | payer OTHER, SELFPAY | PROVIDERS: PCP Internal Medicine; Visit Provider Internal Medicine | DX: Z00.00 Encounter for general adult medical examination without abnormal findings (principal); R12 Heartburn; Z71.89 Other specified counseling | CPT/HCPCS: 99396 ==

== ENCOUNTER 2024-07-29 09:47 | Outpatient (AMB) | payer OTHER, SELFPAY ==
--- NOTE | 2024-07-29 09:59 | AM.OFFWIN_ITS ---
Intake Vital Signs 07/29/24 10:01 Weight 126 lb BP 140/90 H Blood Pressure Location Rt brachial Position Sitting Pulse 101 H Pulse Source Pulse Oximeter Temp 98.1 F Temp Source Oral Pulse Oximetry (%) 98 Oxygen Delivery Method Room Air Intake Visit Reasons: EP pain under breast, sweats, neck pain Intake Note: Patient here for pain under breast, sweats and neck pain that has been present a couple of days. Patient Tobacco Use Status: Former Tobacco user Allergies No Known Allergies Allergy (Verified 07/29/24 10:02) Do you need a note to return to daycare/school/sports/work: No HPI HPI Comments History of Present Illness Details 59 y/o female patient who presents to [facility] with c/o Neck pain and tenderness x 1 week that radiates down to her thoracic back region and chest wall. Reports mild SOB and chest wall tenderness with breathing. She has been taking Muscle relaxants and Advil with no relief. [facility] Medical History (Updated 07/29/24 @ 10:43 by Hattie Bowden NP) Chest wall tenderness Neck strain Former smoker Tobacco abuse disorder Heartburn Acute anxiety Epistaxis, recurrent Surgical History History of esophagogastroduodenoscopy (EGD) No pertinent past surgical history Family History Maternal Grandmother Alzheimers disease Social History Housing: House Alcohol intake: current Alcohol intake frequency: holidays/special occasions only Patient Tobacco Use Status: Former Tobacco user Years Smoked: 30 e-Cigarette/Vaping Use: Never Used Second Hand Smoke Exposure: No Current occupational status: unemployed Cognitive needs: No Hearing needs: No Vision needs: No Female Reproductive History Menstrual Age of Menarche: 19 Review of Systems Const All systems reviewed & are unremarkable except as noted in HPI and below Physical Exam Vital Signs: Last Vital Signs Temp 98.1 F 07/29/24 10:01 Pulse 101 H 07/29/24 10:01 BP 140/90 H 07/29/24 10:01 Pulse Ox 98 07/29/24 10:01 Oxygen Delivery Method Room Air 07/29/24 10:01 Const General: cooperative and no acute distress; No comfortable Nutritional Appearance: thin Orientation/consciousness: patient oriented x3 Chest Chest palpation & inspection: normal inspection of the chest, no crepitus and no tenderness Resp Effort & Inspection: normal respiratory effort, able to speak in complete sentences, no audible wheezes and no cough Auscultation: clear to auscultation bilaterally, no crackles, no rales, no rhonchi and no wheezes Cardio Heart sounds: S1 normal heart sound present and S2 normal heart sound present Back/Spine/Pelvis Cervical Spine: cervical muscular tenderness and Cervical spine tenderness Thoracic/Lumbar Spine: thoracic spinal tenderness Neuro General: patient oriented x3, gait normal and moves all extremities Psych Speech and movement: Normal speech and movement present Assessment & Plan Assessment & Plan (1) Neck strain: Code(s): S16.1XXA - Strain of muscle, fascia and tendon at neck level, initial encounter Qualifiers: Encounter type: initial encounter Qualified Code(s): S16.1XXA - Strain of muscle, fascia and tendon at neck level, initial encounter Plan: Ordered Chest and Neck Xrays Scheduled Patient with PCP 07/30/24 @ 1345 for f/u (2) Chest wall tenderness: Code(s): R07.89 - Other chest pain Plan: Ordered Chest and Neck Xrays Scheduled Patient with PCP 07/30/24 @ 1345 for f/u Orders: Orders XR chest 2V Today R07.89 - Other chest pain, S16.1XXA - Strain of muscle, fascia and tendon at neck level, initial encounter XR cervical spine 3V Today R07.89 - Other chest pain, S16.1XXA - Strain of muscle, fascia and tendon at neck level, initial encounter Coding Level of Care Code Est Pt Level 4 (54407) Diagnoses Strain of neck muscle, initial encounter S16.1XXA Encounter type: initial encounter Chest wall tenderness R07.89 Time Spent (min) 20
[2024-07-29 10:01] VITALS: BP 140/90; PULSE 101; TEMP 36.7; O2SAT 98
== END 2024-07-29 11:14 | disposition home or self-care (01) ==
PROVIDERS: PCP Internal Medicine; Visit Provider Nurse Practitioner Family
DX: S16.1XXA Strain of muscle, fascia and tendon at neck level, initial encounter (principal); R07.89 Other chest pain

== ENCOUNTER 2024-07-29 09:47 | Outpatient (REF) | payer OTHER, SELFPAY ==
--- NOTE | ~2024-07-29 | XR_ITS ---
CLINICAL HISTORY: S16.1XXA - Strain of muscle, fascia and tendon at neck level, initial en... 3 views cervical spine Comparison: None Findings: Cervical spine straightening. Mild grade 1 retrolisthesis at C5/C6. No acute fracture. Irbz-gl-lndnfckh degenerative disc changes at a few lower cervical spine levels. No prevertebral soft tissue swelling. IMPRESSION: No acute fracture This document has been electronically signed by: Vesna Moran MD on 07/29/2024 11:38:00
--- NOTE | ~2024-07-29 | XR_ITS ---
CLINICAL HISTORY: R07.89 - Other chest pain 2 view chest x-ray Comparison: None Findings: No consolidation or effusion. Heart size is normal. Mild chronic anterior wedging of 1 of the midthoracic vertebral bodies. IMPRESSION: 1. No acute findings. This document has been electronically signed by: Vesna Moran MD on 07/29/2024 11:41:18
[2024-07-29 13:07] LABS: Anion Gap 14 (12-20); Blood Urea Nitrogen 13 mg/dL (9-16); Calcium 9.7 mg/dL (8.4-10.2); Carbon Dioxide 26 mmol/L (22-29); Chloride 108 mmol/L (96-108); Cholesterol 203 mg/dL (<200); Estimated Glomerular Filt Rate > 60; Glucose Fasting 107 mg/dL (60-99); HDL Cholesterol 83 mg/dL (>40); LDL Cholesterol Calculated 105 mg/dL (<100); Potassium 4.1 mmol/L (3.3-5.1); Sodium 144 mmol/L (135-145); Triglycerides 78 mg/dL (<150)
[2024-07-29 13:24] LABS: Vitamin D 25-OH Total 76.2 ng/mL (>30)
== END 2024-07-29 09:48 | disposition home or self-care (01) ==
LOC: HO.HMGCX 09:47
PROVIDERS: PCP Internal Medicine; Visit Provider Nurse Practitioner Family
DX: S16.1XXA Strain of muscle, fascia and tendon at neck level, initial encounter (principal); R07.89 Other chest pain; R12 Heartburn; Z78.0 Asymptomatic menopausal state; Z71.89 Other specified counseling
CPT/HCPCS: 36415; 71046; 72040; 80048; 80061; 82306; 99212

== ENCOUNTER → 2024-07-29 10:42 | Outpatient (BNV) | payer OTHER, SELFPAY | PROVIDERS: PCP Internal Medicine; Visit Provider Radiology Diagnostic Radiology | DX: S16.1XXA Strain of muscle, fascia and tendon at neck level, initial encounter (principal) | CPT/HCPCS: 71046; 72040 ==

== ENCOUNTER 2024-07-30 13:39 | Outpatient (AMB) | payer OTHER, SELFPAY ==
[2024-07-30 13:57] VITALS: BP 136/80; PULSE 77; RESP 16; TEMP 36.8; O2SAT 99; BMI 19.9
--- NOTE | 2024-07-30 13:57 | MHC.PC.OV ---
Vital Signs 07/30/24 13:57 Height 5 ft 7 in Weight 127 lb BMI 19.9 BP 136/80 Blood Pressure Location Lt brachial Position Sitting Respiration 16 Pulse 77 Pulse Source Pulse Oximeter Temp 98.2 F Temp Source Oral Pulse Oximetry (%) 99 Oxygen Delivery Method Room Air Intake Visit Reasons: f/u walkin neck pain Intake Note: Pt is here today for her walkin f/u neck pain Allergies No Known Allergies Allergy (Verified 08/04/24 23:49) Medication List - Last Reconciled 08/04/24 by Caprice Alva MD pantoprazole 40 mg PO DAILY PRN Tobacco use date assessed: 07/30/24 Dental Screening Dental Screen Date: 07/30/24 Did you have a dental visit in the last 12 months?: Yes Did you have a dental problem in the last 6 months where you did not have access to dental care?: No Was dental information given to patient?: Patient has dentist HPI f/u walkin neck pain HPI Details 59-year-old lady here today complaining still of pain in posterior neck radiating down upper back, which has been present now for the last 10 days. Was in the walk-in clinic a week ago, and has been taking muscle relaxants and Advil with no relief. Denies any shortness of breath or cough, no lightheadedness reported. No numbness or weakness in extremities. [facility] Medical History Cervicalgia Chest wall tenderness Neck strain Former smoker Tobacco abuse disorder Heartburn Acute anxiety Epistaxis, recurrent Surgical History History of esophagogastroduodenoscopy (EGD) No pertinent past surgical history Family History Maternal Grandmother Alzheimers disease Social History Housing: House Alcohol intake: current Alcohol intake frequency: holidays/special occasions only Patient Tobacco Use Status: Former Tobacco user Years Smoked: 30 e-Cigarette/Vaping Use: Never Used Second Hand Smoke Exposure: No Current occupational status: unemployed Cognitive needs: No Hearing needs: No Vision needs: No Female Reproductive History Menstrual Age of Menarche: 19 Questionnaire PHQ-9 Over the last 2 weeks, how often have you been bothered by any of the following problems? 1. Little interest or pleasure in doing things: not at all 2. Feeling down, depressed, or hopeless: not at all 3. Trouble falling or staying asleep, or sleeping too much: not at all 4. Feeling tired or having little energy: not at all 5. Poor appetite or overeating: not at all 6. Feeling bad about yourself - or that you are a failure or have let yourself or your family down: not at all 7. Trouble concentrating on things, such as reading the newspaper or watching television: not at all 8. Moving or speaking so slowly that other people could have noticed. Or the opposite - being so fidgety or restless that you have been moving around a lot more than usual: not at all 9. Thoughts that you would be better off or of hurting yourself in some way: not at all Total score: 0 Depression Screening Interpretation: Negative Depression Screening Done: Yes 98721 - PHQ-9 Billing: Yes Source: Developed by Drs. Devonte Oakley, Angelita Renner, Serge Whitaker and colleagues, with an educational jasiel from [employer]. Thrive Questionnaire Date Thrive assessed: 07/30/24 I am a: Patient What is your living situation today?: I have a steady place to live Within the past 12 months, did the food you bought not last and you didn't have the money to get more?: I choose not to answer this question Within the past 12 months, did you worry whether your food would run out before you got money to buy more?: I choose not to answer this question Do you have trouble paying for medicines?: No Do you have trouble getting transportation to medical appointments?: No Do you have trouble paying your heating and electricity bill?: No Do you have trouble taking care of your child, family member or friend?: No Do you have trouble with day-to-day activities such as bathing, preparing meals, shopping, managing finances, etc.?: No Are you currently unemployed and looking for a job?: No Are you interested in more education?: No Please select the resources that you would like help with: None Currently or been in a relationship where the following occur: I choose not to answer THRIVE Score: 0 AUDIT C Alcohol Use Questionnaire (AUDIT-C) 1. How often do you have a drink containing alcohol?: Never Total Score: 0 CARL-7 AMB Questionnaire CARL-7 Date CARL - 7 assessed: 07/30/24 Feeling nervous, anxious, or on edge: 0 = Not at all Not being able to stop or control worryin = Not at all Worrying too much about different things: 0 = Not at all Trouble relaxin = Not at all Being so restless that it is hard to sit still: 0 = Not at all Becoming easily annoyed or irritable: 0 = Not at all Feeling afraid as if something awful might happen: 0 = Not at all Total CARL-7 score (0-4 normal; 5-9 mild; 10-14 moderate; 15-21 severe): 0 Source: Developed by Drs. Devonte Oakley, Angelita Renner, Serge Whitaker and colleagues, with an educational jasiel from [employer]. CARL-7 Assessment Billing CARL-7 Assessment Tool: CARL-7 Assessment 83113 Review of Systems Const All systems reviewed & are unremarkable except as noted in HPI and below Physical exam (Primary Care) Vital Signs: Last Vital Signs Temp 98.2 F 07/30/24 13:57 Pulse 77 07/30/24 13:57 Resp 16 07/30/24 13:57 BP 136/80 07/30/24 13:57 Pulse Ox 99 07/30/24 13:57 Oxygen Delivery Method Room Air 07/30/24 13:57 BMI result Body Mass Index 19.9 Tobacco/Smoking Status: Tobacco use Status Tobacco use date assessed 07/30/24 07/30/24 14:03 Patient Tobacco Use Status Former Tobacco user 07/30/24 13:58 e-Cigarette/Vaping Use Never Used 07/30/24 13:58 PHQ-9: PHQ-9 Score PHQ-9: Total score 0 07/30/24 14:35 Depression Screening Interpretation: Negative Thrive Assessment: Date of Thrive Assessment Date Thrive assessed 07/30/24 07/30/24 14:03 Currently or been in a relationship where the following occur: I choose not to answer Const Other: Alert oriented x3, no acute cardiorespiratory distress noted ambulatory with normal gait [facility] General nose exam: Normal external nose present Mouth: Normal oral and palatal mucosa present and moist mucous membranes Neck Neck: Yes full ROM, Yes no lymphadenopathy and Yes supple Chest Breast/axilla palpation: normal palpation of the breasts Resp Auscultation: clear to auscultation bilaterally Cardio Other: S1 and S2 present regular rate and rhythm GI Other: Normal bowel sounds, soft, nontender, no mass palpated Back/Spine/Pelvis Other: Slight tenderness on palpation over both trapezius muscles. Skin General skin exam: no rashes or lesions noted Neuro General: gait normal, Normal light touch and pain sensation, no focal motor deficits, CN's II-XI intact bilaterally and normal sensation to monofilament Extrem General: Yes normal to inspection, Yes full ROM, Yes no joint enlargement, Yes no pedal edema, Yes no calf tenderness and Yes normal gait Psych Appearance: grossly normal Mental Status: mental status grossly normal Speech and movement: Normal speech and movement present Affect: normal affect Attitude: cooperative Coding Level of Care Code Est Pt Level 3 (02395) Diagnoses Cervicalgia M54.2 Additional Codes PHQ-9 - 26117 - PHQ-9 Billing: Yes ([id number]) CARL-7 Assessment Billing - CARL-7 Assessment Tool: CARL-7 Assessment 19692 ([id number]) Assessment & Plan Assessment & Plan (1) Cervicalgia: Code(s): M54.2 - Cervicalgia Category: Medical Plan: Referred for physical therapy, try applying Salonpas patch to affected areas twice a day as needed for pain. call clinic if no improvement of symptoms noted after physical therapy Orders: Orders PT Evaluation and Treatment 07/30/24 M54.2 - Cervicalgia
== END 2024-07-30 14:38 | disposition home or self-care (01) ==
PROVIDERS: PCP Internal Medicine; Visit Provider Internal Medicine
DX: M54.2 Cervicalgia (principal)

== ENCOUNTER → 2024-07-30 13:39 | Outpatient (BNVA) | payer OTHER, SELFPAY | PROVIDERS: PCP Internal Medicine; Visit Provider Internal Medicine | DX: M54.2 Cervicalgia (principal) | CPT/HCPCS: 96127; 99212 ==

== ENCOUNTER 2024-08-27 12:15 | Outpatient (REF) | payer OTHER, SELFPAY | END 2024-08-27 12:16 | disposition home or self-care (01) | LOC: HO.MAMMO 12:15 | PROVIDERS: PCP Internal Medicine; Visit Provider Internal Medicine | DX: Z12.31 Encounter for screening mammogram for malignant neoplasm of breast (principal) | CPT/HCPCS: 77063; 77067 ==

== ENCOUNTER → 2024-08-27 12:30 | Outpatient (BNV) | payer OTHER, SELFPAY | PROVIDERS: PCP Internal Medicine; Visit Provider Internal Medicine | DX: Z12.31 Encounter for screening mammogram for malignant neoplasm of breast (principal) | CPT/HCPCS: 77063; 77067 ==

== ENCOUNTER 2024-08-29 08:11 | Outpatient (REF) | payer OTHER, SELFPAY ==
--- NOTE | ~2024-08-29 | US_ITS ---
CLINICAL HISTORY: R10.10 - Upper abdominal pain, unspecified US abdomen complete Comparison: None Findings: The visualized pancreas is normal. The partially imaged aorta and inferior vena cava are normal caliber. Slight increased hepatic echogenicity compatible with steatosis. There is no intrahepatic bile duct dilatation. Common bile duct 3 mm. Punctate twinkling echogenic focus in the gallbladder without sonographic features to suggest acute cholecystitis. No wall thickening or pericholecystic fluid. Technologist reports no focal pain when scanning over the gallbladder. The main portal vein is antegrade. Right kidney 9.3 cm. Left kidney 9.0 cm. No hydronephrosis. The spleen is normal in size. No ascites. IMPRESSION: Slight increased hepatic echogenicity compatible with steatosis. Cholelithiasis without acute cholecystitis. This document has been electronically signed by: Judith Guo MD on 08/29/2024 09:55:20
== END 2024-08-29 08:12 | disposition home or self-care (01) ==
LOC: HO.HMGCX 08:11
PROVIDERS: PCP Internal Medicine; Visit Provider Internal Medicine Gastroenterology
DX: R10.10 Upper abdominal pain, unspecified (principal)
CPT/HCPCS: 76700

== ENCOUNTER → 2024-08-29 08:13 | Outpatient (BNV) | payer OTHER, SELFPAY | PROVIDERS: PCP Internal Medicine; Visit Provider Radiology Diagnostic Radiology | DX: K80.20 Calculus of gallbladder without cholecystitis without obstruction (principal); K76.0 Fatty (change of) liver, not elsewhere classified | CPT/HCPCS: 76700 ==

== ENCOUNTER 2024-09-13 12:35 | Outpatient (AMB) | payer OTHER, SELFPAY ==
--- NOTE | 2024-09-13 12:49 | MHC.OFFVIS ---
Vital Signs 09/13/24 12:51 Height 5 ft 7 in Weight 125 lb BMI 19.6 BP 116/71 Blood Pressure Location Lt brachial Position Sitting Pulse 76 Pulse Oximetry (%) 98 Oxygen Delivery Method Room Air Intake Visit Reasons: stomach pain LINDA pt Intake Note: Patient complex follow up for abdominal pain/Linda weber, MAURA was 12/28/2022. Patient denies any GI issues for today visit. Clothing Man Required: No Accompanied by: Self / Same As Patient Allergies No Known Allergies Allergy (Verified 09/13/24 12:48) Medication List - Last Reconciled 09/13/24 by TERRY Jimenez Lactobac 66-Bifido 4-S.thermo 3 billion cell (Advanced Probiotic-14) caps PO metronidazole 500 mg PO TID 10 days pantoprazole 40 mg PO DAILY HPI HPI stomach pain LINDA pt: Details: 59-year-old female previously seen by Lisa Vila now on my schedule for an evaluation of abdominal pain. She was last seen by Lisa 12/28/2022 last note is as follows: A 57-year-old female follows up after recent EGD for acid reflux. She has been taking pantoprazole 40 mg daily with very good response as well as had discontinued tobacco. She is overall feeling well however if she does omit PPI her symptoms recur. Appetite is good Here reviewed procedure report and pathology She had a Cologuard negative August of this year repeat colon cancer screening 2025 No nausea, vomiting, hematemesis, hematochezia fever chills PMX Anxiety Smoker - quit a couple of weeks GERD * SURGICAL HISTORY EGD * ALLERGIES: NKDA * [employer] LABS: ULTRASOUND OF THE ABDOMEN Findings: The visualized pancreas is normal. The partially imaged aorta and inferior vena cava are normal caliber. Slight increased hepatic echogenicity compatible with steatosis. There is no intrahepatic bile duct dilatation. Common bile duct 3 mm. Punctate twinkling echogenic focus in the gallbladder without sonographic features to suggest acute cholecystitis. No wall thickening or pericholecystic fluid. Technologist reports no focal pain when scanning over the gallbladder. The main portal vein is antegrade. Right kidney 9.3 cm. Left kidney 9.0 cm. No hydronephrosis. The spleen is normal in size. No ascites. IMPRESSION: Slight increased hepatic echogenicity compatible with steatosis. Cholelithiasis without acute cholecystitis. This document has been electronically signed by: Judith Guo MD on 08/29/2024 09:55:20 Dictated By: Judith Guo MD Signed By: <Electronically signed by Judith Guo MD in OV> 08/29/24 TODAY'S VISIT This is my 1st contact with the patient she says that her abdominal pain has resolved. She c/o gas trapping that is painful in the RUQ. US okay. GERD controlled on pantoprazole qd and she takes TUMS for breakthrough. A LOT of flatulence. no burping. TX possible SIBO if not successful consider creon etc. ROV 8 weeks. [facility] Medical History (Updated 09/13/24 @ 17:26 by TERRY Jimenez) Upper abdominal pain Cervicalgia Chest wall tenderness Neck strain Former smoker Tobacco abuse disorder Heartburn Acute anxiety Epistaxis, recurrent Surgical History History of esophagogastroduodenoscopy (EGD) No pertinent past surgical history Family History Maternal Grandmother Alzheimers disease Social History Housing: House Alcohol intake: current Alcohol intake frequency: holidays/special occasions only Patient Tobacco Use Status: Former Tobacco user Years Smoked: 30 e-Cigarette/Vaping Use: Never Used Second Hand Smoke Exposure: No Current occupational status: unemployed Cognitive needs: No Hearing needs: No Vision needs: No Female Reproductive History Menstrual Age of Menarche: 19 Review of Systems Const Denies fatigue, Denies fever(s), Denies night sweats, Denies poor appetite and Denies weight loss ENT Reports Normal hearing present, Denies dental pain, Denies dysphagia, Denies hearing loss, Denies mouth pain, Denies odynophagia, Denies throat swelling, Denies tongue swelling and Reports other (Dentition adequate) Card Reports no additional complaints Resp Reports no additional complaints GI Details: Denies abdominal pain, Denies melena, Reports bloating, Denies hematochezia, Denies constipation, Denies GI cramping, Denies dysphagia, Reports excessive flatus, Denies early satiety, Reports heartburn, Denies diarrhea, Denies nausea, Denies odynophagia, Denies vomiting and Denies hematemesis Skin/Breast Denies pruritus, Denies lesions, Denies rash and Denies jaundice Neuro Reports Normal hearing present and Denies Abnormal speech present Endo Denies fatigue Aller/Immun Denies throat swelling and Denies tongue swelling Physical Exam Vital Signs: Last Vital Signs Pulse 76 09/13/24 12:51 BP 116/71 09/13/24 12:51 Pulse Ox 98 09/13/24 12:51 Oxygen Delivery Method Room Air 09/13/24 12:51 BMI result Body Mass Index 19.6 Const General: cooperative, no acute distress, well developed and well groomed Nutritional Appearance: well nourished and thin Orientation/consciousness: oriented to person, oriented to place and oriented to time Limitations: No language barrier HEENT Head: Yes normocephalic and Yes atraumatic Eyes General: appearance normal, both eyes and all related structures Pupils: Equal, round and reactive pupils present Neck Neck: Yes normal visual inspection and Yes no lymphadenopathy Thyroid: Thyroid normal Resp Effort & Inspection: normal respiratory effort and able to speak in complete sentences Auscultation: clear to auscultation bilaterally Cardio Rate: regular rate Rhythm: regular rhythm Heart sounds: Normal, physiologic split S2 sound present Peripheral pulses: radial pulses present and posterior tibial pulses present GI Inspection: No distended and No Abdominal panniculus present Palpation (GI): Soft to palpation, nontender, no guarding, not rigid and No hepatosplenomegaly present Percussion: Yes normal to percussion Auscultation: normal bowel sounds Rectal Exam - Female: deferred Skin General skin exam: no rashes or lesions noted, turgor normal, skin not dry, no jaundice, No spider nevi and no striae Rashes: no rashes Nails: normal Neuro General: oriented to person, oriented to place and oriented to time Cranial nerves: Yes Equal, round and reactive pupils present and Yes Normal hearing present Speech: No Abnormal speech present Extrem General: Yes normal to inspection, No clubbing, No cyanosis and No edema Psych Appearance: grossly normal and well kempt Mental Status: mental status grossly normal Speech and movement: Normal speech and movement present Affect: normal affect Attitude: cooperative Thought process: Normal thought process present and not confabulating Thought content: Normal thought content present Insight: Fair insight present (Psych) Judgement: Fair judgement present (Psych) Assessment & Plan Assessment & Plan (1) Abdominal bloating: Code(s): R14.0 - Abdominal distension (gaseous) Category: Medical (2) Heartburn: Code(s): R12 - Heartburn Category: Medical Plan This is my 1st contact with the patient she says that her abdominal pain has resolved. She c/o gas trapping that is painful in the RUQ. US okay. GERD controlled on pantoprazole qd and she takes TUMS for breakthrough. A LOT of flatulence. no burping. TX possible SIBO if not successful consider creon etc. ROV 8 weeks. Medications: New metronidazole 500 mg PO TID 30 tabs 0RF 10 days Changed From pantoprazole 40 mg PO DAILY PRN 270 tabs 0RF for heartburn R12 - Heartburn To pantoprazole 40 mg PO DAILY 90 tabs 1RF for heartburn R12 - Heartburn Coding Level of Care Code Est Pt Level 4 (66949) Diagnoses Abdominal bloating R14.0 Heartburn R12 Time Spent (min) 38
[2024-09-13 12:51] VITALS: BP 116/71; PULSE 76; O2SAT 98; BMI 19.6
== END 2024-09-13 13:56 | disposition home or self-care (01) ==
LOC: HO.HGI 12:36
PROVIDERS: PCP Internal Medicine; Visit Provider Nurse Practitioner
DX: R14.0 Abdominal distension (gaseous) (principal); R12 Heartburn
CPT/HCPCS: 99214

== ENCOUNTER → 2024-09-13 12:35 | Outpatient (BNVA) | payer OTHER, SELFPAY | PROVIDERS: PCP Internal Medicine; Visit Provider Nurse Practitioner | DX: R14.0 Abdominal distension (gaseous) (principal); R12 Heartburn | CPT/HCPCS: 99212 ==

== ENCOUNTER 2025-01-29 10:32 | Outpatient (AMB) | payer OTHER, SELFPAY ==
[2025-01-29 10:42] VITALS: BP 124/70; PULSE 73; TEMP 37.1; O2SAT 99; BMI 19.3
--- NOTE | 2025-01-29 10:42 | MHC.OFFWIV ---
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 Is last menstrual period known: No Post menopausal: Yes Patient : No Allergies No Known Allergies Allergy (Verified 01/29/25 10:48) Do you need a note to return to daycare/school/sports/work: No HPI HPI Comments History of Present Illness Details She presents to office with head and neck pain On Monday she went out to [employer] and ordered a drink Edmond like after 1/2 of her cocktail she felt lightheaded and nauseous upon standing She said she immediately felt sharp pain in the back of her head + persistent vomiting caused her to brign her immediately to the [facility] ER She said she had a head scan and told it was fine and placed back in waiting room No blood tests were obtained and unable to see pcp She said since then she has had persistent fatigue, posterior and L sided neck pain, without headaches No syncope or recurrent dizziness. No confusion or vision changes No unilateral weakness numbness or tingling She only takes takes GERD medicine. No changes in medications No fever or chills, cold symptoms such as congestion, cough, ST No continual nausea or vomiting No heavy lifting, trauma or injury that she can recall Pain in the posterior neck and L side neck is 8/10 with neck flexion She tried motrin for neck pain without relief Pain slightly improved but still cant look down and feels tired [facility] Medical History (Updated 09/13/24 @ 17:26 by TERRY Jimenez) Upper abdominal pain Cervicalgia Chest wall tenderness Neck strain Former smoker Tobacco abuse disorder Heartburn Acute anxiety Epistaxis, recurrent Surgical History History of esophagogastroduodenoscopy (EGD) No pertinent past surgical history Family History Maternal Grandmother Alzheimers disease Social History Housing: House Alcohol intake: current Alcohol intake frequency: holidays/special occasions only Patient Tobacco Use Status: Former Tobacco user Years Smoked: 30 e-Cigarette/Vaping Use: Never Used Second Hand Smoke Exposure: No Current occupational status: unemployed Cognitive needs: No Hearing needs: No Vision needs: No Female Reproductive History Menstrual Age of Menarche: 19 Review of Systems Const Denies chills, Reports fatigue, Denies fever(s), Reports headache(s), Reports lethargy and Denies weakness Eyes Denies change in vision ENT Denies dizziness, Denies otalgia, Reports headache(s), Denies nasal congestion, Reports neck pain and Denies sore throat Card Denies chest pain, Denies syncope and Denies dyspnea Resp Denies cough and Denies dyspnea GI Denies abdominal pain, Reports nausea (previously but resolved) and Reports vomiting (previously but resolved) Musc Reports neck pain, Denies numbness and Denies tingling Skin/Breast Denies rash Neuro Denies confusion, Denies dizziness, Denies syncope, Reports headache(s), Denies numbness, Denies tingling and Denies weakness Psych Denies confusion Endo Reports fatigue Physical Exam Exam Exam: General: Non-toxic, NAD. Speaking full sentences. Skin: Warm dry throughout. No posterior or lateral neck rashes, lesions, edema or ecchymosis Eye: EOMI, PERRLA. No conjunctival erythema HENT: Airway patent. Uvula midline. No pharyngeal erythema or edema. No SENIOR PRODUCT CONSULTANT. Bilateral canals clear. TM non-erythematous, non-bulging. No TM perforation or hemotympanum noted. No mastoid ttp Neck: No midline or paraspinous ttp. Pain to midline occipital region with neck flexion. No lymphadenopathy. No carotid bruits. Respiratory: CTA bilaterally. No wheezes, rales or rhonchi Cardiac: RRR. No murmur. Radial oulse 2+ equal in strength and timing MSK: 5/5 wedger strength and strength with flexion/extension against resistent at elbows. 5/5 strength flexion/extension at knees and dorsal/plantar flexion at ankles. Neurology: A/O x 3. CN 2-12 grossly intact. Negative pronator drift. Able to maintain balance during rhomberg. Finger to nose tracing equal bilaterally. No aphasia or facial droop. Gait without abnormality Psych: Good mood and affect Vital Signs: Last Vital Signs Temp 98.8 F 01/29/25 10:42 Pulse 73 01/29/25 10:42 BP 124/70 01/29/25 10:42 Pulse Ox 99 01/29/25 10:42 Oxygen Delivery Method Room Air 01/29/25 10:42 BMI result Body Mass Index 19.3 Const General: No confusion Orientation/consciousness: No confusion Neuro General: No confusion Assessment & Plan Assessment & Plan (1) Cervicalgia: Code(s): M54.2 - Cervicalgia Plan: Patient seen and evaluated. NO neurological deficit on exam and pt vital are wnl Discussed with pt and concerned for non-reproducible neck pain that is worse with neck flexion I believe labs and possible further imaging warranted and expect called to [facility] Pt and gave verbal understanding anf had no additional questions. All questions answered Coding Level of Care Code Est Pt Level 5 (27172) Diagnoses Cervicalgia M54.2
--- OUTSIDE RECORDS SUMMARY | 2025-01-29 11:49 | XMS_ITS | Clinical Summary ---
Author Organization [facility] Address [address] [place] [address] Phone Care Team Providers Care Environmental Engineering Professor Name Role Phone Physician, No Pcp Primary Care Provider Unavaila ble Allergies No known active allergies Medications No known medications Active Problems No known active problems Encounters Date Type Department Care Team Description 01/27/2025 9:27 PM EDT - 01/28/2025 12:12 AM EDT Emergency [facility] Emergency [address] [place] [address] Discharge Disposition: Home or Self Care from Last 3 Months Social History Tobacco Use Types Packs/Day Years Used Date Smoking Tobacco: Every Day Cigarettes Smokeless Tobacco: Never Tobacco Cessation:Ready to Q uit: Not Asked; Counseling Given: Not Answered Comments Unknown Sex and Gender Information Value Date Recorded Sex Assigned at Not on file Legal Sex Female 9:24 PM EDT Gender Identity Not on file Sexual Orientation Not on file Obstetrics History Last Filed Vital Signs Vital Sign Reading Time Taken Comments Blood Pressure 134/86 01/27/2025 9:32 PM EDT Pulse 79 01/27/2025 9:32 PM EDT Temperature 36.6 C (97.9 F) 01/27/2025 9:32 PM EDT Respiratory Rate 18 01/27/2025 9:32 PM EDT Oxygen Saturation 100% 01/27/2025 9:32 PM EDT Inhaled Oxygen Concentration - - Weight 54.9 kg (121 lb) 01/27/2025 9:32 PM EDT Height 170.2 cm (5' 7 ) 01/27/2025 9:32 PM EDT Body Mass Index 18.95 01/27/2025 9:32 PM EDT Plan of Treatment Health Maintenance Due Date Last Done Comments Breast Cancer Screening 1965 DTaP,Tdap,and Td Vaccines (1 - Tdap) 1986 Hepatitis B Vaccines (1 of 3 - 19+ 3-dose series) 1986 Pneumococcal Vaccine: 50+ Ye ars (1 of 2 - PCV) 1986 Cervical Cancer Screening: P ap Smear 1988 Zoster Vaccines (1 of 2) 2017 COVID-19 Vaccine (1 - 2023-2 5 season) 2024 Depression Screening 06/12/2024 Cholesterol Screening (Lipid Panel) 01/27/2025 Colorectal Cancer Screening: Colonoscopy 01/27/2025 HIV Screening 01/27/2025 Hepatitis C Screening 01/27/2025 Social Influencers of Health Screening 01/27/2025 Influenza Vaccine (#1) 2025 HIB Vaccines Aged Out No longer eligi ble based on patient's age to complete this topic HPV Vaccines Aged Out No longer eligi ble based on patient's age to complete this topic Hepatitis A Vaccines Aged Out No long er eligible based on patient's age to complete this topic IPV Vaccines Aged Out No longer eligi ble based on patient's age to complete this topic MMR Vaccines Aged Out No longer eligi ble based on patient's age to complete this topic Meningococcal ACWY Vaccine Aged Out N o longer eligible based on patient's age to complete this topic Meningococcal B Vaccine Aged Out No l onger eligible based on patient's age to complete this topic RSV Immunization Patients Un ruba 20 months Aged Out No longer eligible b ased on patient's age to complete this topic Varicella Vaccines Aged Out No longer eligible based on patient's age to complete this topic Procedures Procedure Name Priority Date/Time Associated Diagnosis Comments CT HEAD WO CONTRAST STAT 01/27/2025 9 :[address] CERVICAL SPINE WO CONTRAST STAT 01/27/2025 9:53 PM EDT from Last 3 Months Results * CT Cervical Spine wo Contrast (01/27/2025 9:53 PM EDT) Anatomical Region Laterality Modality Spine, C-spine Computed Tomogra phy 01/27/2025 10:2 3 PM EDT Impressions 01/27/2025 10:23 PM EDT No acute findings. This document has been electronically signed by: Mick Granger MD on 01/27/2025 22:23:22 Narrative 01/27/2025 10:23 PM EDT INDICATION: Neck pain, acute, no red flags CT cervical spine without contrast Comparison: None provided Findings: Vertebral alignment is within normal limits. Mild degenerative changes of the cervical spine. No acute fractures or dislocations. Visualized intracranial contents are unremarkable. Soft tissues of the neck are normal. No apical pneumothorax. Procedure Note Mick Granger MD - 01/27/2025 INDICATION: Neck pain, acute, no red flags CT cervical spine without contrast Comparison: None provided Findings: Vertebral alignment is within normal limits. Mild degenerative changes of the cervical spine. No acute fractures or dislocations. Visualized intracranial contents are unremarkable. Soft tissues of the neck are normal. No apical pneumothorax. IMPRESSION: No acute findings. This document has been electronically signed by: Mick Granger MD on 01/27/2025 22:23:[address] PROCEDURES Final Result * CT Head wo Contrast (01/27/2025 9:53 PM EDT) Anatomical Region Laterality Modality Head and Neck Computed Tomogra phy 01/27/2025 10:2 6 PM EDT Impressions 01/27/2025 10:26 PM EDT 1. No acute intracranial findings. This document has been electronically signed by: Mick Granger MD on 01/27/2025 22:26:03 Narrative 01/27/2025 10:26 PM EDT INDICATION: Headache, intracranial hemorrhage suspected CT head without contrast Comparison: None provided Findings: No intra-axial mass, midline shift, hydrocephalus, or acute hemorrhage. No significant atrophy-like change or white matter disease. The visualized paranasal sinuses and mastoid air cells are normal. The orbits are within normal limits. There is no acute fracture. Procedure Note Mick Granger MD - 01/27/2025 INDICATION: Headache, intracranial hemorrhage suspected CT head without contrast Comparison: None provided Findings: No intra-axial mass, midline shift, hydrocephalus, or acute hemorrhage. No significant atrophy-like change or white matter disease. The visualized paranasal sinuses and mastoid air cells are normal. The orbits are within normal limits. There is no acute fracture. IMPRESSION: 1. No acute intracranial findings. This document has been electronically signed by: Mick Granger MD on 01/27/2025 22:26:[address] PROCEDURES Final Result from Last [address] [place] [address] Care Teams Environmental Engineering Professor Relationship Specialty Start Date End Date Physician, No Pcp PCP - General 01/28/25
== END 2025-01-29 12:30 | disposition home or self-care (01) ==
PROVIDERS: PCP Internal Medicine; Visit Provider Physician Assistant
DX: M54.2 Cervicalgia (principal)

== ENCOUNTER 2025-01-29 11:31 | Emergency (ER) | payer OTHER, SELFPAY ==
--- NOTE | ~2025-01-29 | CT_ITS ---
EXAMINATION: CT ANGIOGRAM HEAD AND NECK CLINICAL INFORMATION: Sudden onset headache and dizziness 2 days ago. 59-year-old female. COMPARISON: None available. TECHNIQUE: Noncontrast axial imaging of the head was performed. This was followed by test bolus sequences and head and neck intravenous bolus administration 70 mL of Omnipaque 350. Helical imaging was performed in the axial plane from the aortic arch to the skull vertex. The data was processed at the applied technologist's workstation for generation of MIP sequences. Angled MIPs and volume rendered reformatted images were also generated at an offline 3D workstation. Stenoses are assessed in accordance with NASCET criteria unless otherwise indicated. This CT examination was performed using dose optimization techniques as appropriate, variously including the following: *Automated exposure control *Adjustment of mA and/or kV according to patient size (this includes techniques or standardized protocols for targeted exams where dose is matched to indication/reason for exam; i.e. extremities or head) *Use of iterative reconstruction technique FINDINGS: NONCONTRAST HEAD CT: There is no evidence of intracranial hemorrhage or extra-axial fluid collection. There is no mass effect, or edema. No CT evidence of acute territorial infarct. Ventricles, sulci, and cisterns are normal in size and configuration for patient age. No hydrocephalus. No midline shift. No significant white matter abnormalities. Globes and orbital contents image normally. No extracranial soft tissue abnormalities. The paranasal sinuses, mastoid air cells, and tympanic cavities are normally aerated. No suspicious bony abnormalities. NECK CTA: -AORTIC ARCH: Normal in caliber. Three-vessel branching pattern. -GREAT VESSEL ORIGINS: Widely patent. No stenosis. -RIGHT COMMON CAROTID ARTERY: Normal in course and caliber to the level of the bifurcation. -CERVICAL RIGHT INTERNAL CAROTID ARTERY: Normal opacification without focal stenosis or occlusion. -LEFT COMMON CAROTID ARTERY: Normal in course and caliber to the level of the bifurcation. -CERVICAL LEFT INTERNAL CAROTID ARTERY: Normal opacification without focal stenosis or occlusion. -CERVICAL RIGHT VERTEBRAL ARTERY: Codominant. Normal in course and caliber into the skull base. -CERVICAL LEFT VERTEBRAL ARTERY: Codominant. Normal in course and caliber into the skull base. OTHER, SOFT TISSUES: -No lymphadenopathy or mass. No abnormal fluid collection or soft tissue swelling. -Thyroid demonstrates a left-sided 1.2 cm nodule. There are smaller left-sided nodules. -Imaged superior mediastinal structures normal. -Imaged lung apices demonstrate apical pleural parenchymal scarring right greater than left. There is mild thickening of the small airways suggesting chronic pancreas. There are mild paraseptal emphysematous changes. There are secretions within the distal trachea. CTA OF THE BRAIN: -INTRACRANIAL INTERNAL CAROTID ARTERIES: No focal stenosis or occlusion. -RIGHT ANTERIOR CEREBRAL ARTERY: Normal A1 segment. Normal arborization of the distal segments. -LEFT ANTERIOR CEREBRAL ARTERY: Normal A1 segment. Normal arborization of the distal segments. -ANTERIOR COMMUNICATING ARTERY: Normal. -RIGHT MIDDLE CEREBRAL ARTERY: Normal M1 segment of the MCA without focal stenosis or occlusion. Normal bifurcation. Normal arborization of the distal segments. -LEFT MIDDLE CEREBRAL ARTERY: Normal M1 segment of the MCA without focal stenosis or occlusion. Normal bifurcation. Normal arborization of the distal segments. -RIGHT VERTEBRAL ARTERY V4: Normal in course and caliber. -LEFT VERTEBRAL ARTERY V4: Normal in course and caliber. -BASILAR ARTERY: Normal without focal stenosis or occlusion. Normal appearance of the proximal superior cerebellar arteries. Normal basilar tip. -RIGHT POSTERIOR CEREBRAL ARTERY: Normal P1 segment. Normal opacification of the distal LIMO DRIVER segments. -LEFT POSTERIOR CEREBRAL ARTERY: The P1 segment is diminutive. origin of the LIMO DRIVER with robust opacification of the posterior communicating artery. Normal opacification of the distal LIMO DRIVER segments. -POSTERIOR COMMUNICATING ARTERIES: Patent although small bilaterally. Normal opacification of the superior sagittal, straight, transverse, and sigmoid sinuses. No venous thrombosis. No space-occupying hemorrhage or definite evolving infarct. CT/CT angio head neck IMPRESSION: NONCONTRAST HEAD CT: 1. No intracranial hemorrhage or mass effect. No CT evidence of acute territorial infarct. CTA NECK: 1. No evidence of significant stenosis, occlusion, dissection, or aneurysm of the major cervical arterial vasculature. 2. There are several left-sided thyroid nodules measuring up to 1.2 cm. CTA HEAD: 1. No evidence of significant stenosis, occlusion, dissection, or aneurysm of the major intracranial arterial vasculature. 2. The major cortical and dural venous sinuses are patent. Electronically signed by: Donta Dennis MD 01/29/2025 02:17 PM EDT
[2025-01-29 12:05] VITALS: BP 141/69; PULSE 76; RESP 18; TEMP 36.6; O2SAT 99; BMI 19.1
--- NOTE | 2025-01-29 12:09 | ECG_ITS ---
Test Reason : DIZZINESS Blood Pressure : */* mmHG Vent. Rate : 68 BPM Atrial Rate : 68 BPM P-R Int : 150 ms QRS Dur : 76 ms QT Int : 384 ms P-R-T Axes : 83 72 59 degrees QTcB Int : 408 ms Normal sinus rhythm Normal ECG No previous ECGs available Referred By: Cameron Melvin Electronically Signed By: CARLOS GASCA MD
--- NOTE | 2025-01-29 12:09 | ED_ITS ---
HPI - General Adult General Chief complaint: Dizziness Stated complaint: sent from for CT scan Time Seen by Provider: 01/29/25 12:15 Source: patient Mode of arrival: ambulatory Limitations: no limitations History of Present Illness ED Provider: DR. Clarke HPI narrative: 59-year-old female otherwise healthy, walked into the emergency department for evaluation of headache and neck pain. Patient's symptoms started 3 days ago after she had small drink of alcohol patient after she drank the alcohol felt lightheadedness, nausea and vomiting several times, then she started to have severe headache after, patient was seen and evaluated at [facility] that night reportedly had CT of the head which was unremarkable. Patient returned to the ED today for re-evaluation of persistent of headache and neck pain, especially when she bends her head down. Patient feels pressure over her frontal sinuses if she bent down. Otherwise no trauma, no fall, no history of cerebral aneurysm, no family history of cerebral aneurysm or intracranial bleed. Patient reported interval improvement of her symptoms since Monday. No fever, no chills, no photophobia, no double vision. Related Data Home Medications ?Medication ?Instructions ?Recorded ?Confirmed Sextzatwjofyt-Oknicnfykxfaicd-R.thermophilus cap PO 09/13/24 3 billion cell capsule (Advanced Probiotic-14) Previous Rx's ?Medication ?Instructions ?Recorded metronidazole 500 mg tablet 500 mg PO TID 10 days #30 tabs 09/13/24 pantoprazole 40 mg tablet,delayed 40 mg PO DAILY for h eartburn #90 09/13/24 release tabs cyclobenzaprine 10 mg tablet 10 mg PO TID PRN muscle s pasm #14 01/29/25 tabs Allergies Allergy/AdvReac Type Severity Reaction Status Date / Time No Known Allergies Allergy Verified 01/29/25 12:06 Review of Systems 2 Review of Systems: All other systems are reviewed and are negative Constitutional: Reports as per HPI and Reports no additional constitutional complaints Eyes: Reports as per HPI and Reports no additional eye complaints Reports system reviewed and no additional complaints, except as documented Cardiovascular: Reports as per HPI and Reports no additional cardiovascular complaints Respiratory: Reports as per HPI and Reports no additional respiratory complaints Gastrointestinal: Reports as per HPI and Reports no additional gastrointestinal complaints Genitourinary: Reports no additional female genitourinary complaints Musculoskeletal: Reports no additional musculoskeletal complaints Skin/Breast: Reports system reviewed and no additional complaints, except as docu Psychiatric: Reports no additional psychiatric complaints Endocrine: Reports no additional endocrine complaints Hematologic/Lymphatic: Reports no additional hematologic/lymphatic complaints Allergic/Immunologic: Reports no additional allergic/immunologic complaints Reports system reviewed and no additional complaints, except as documented and Reports Abnormal speech present [facility] Past Medical History Medical History Upper abdominal pain Cervicalgia Chest wall tenderness Neck strain Former smoker Tobacco abuse disorder Heartburn Acute anxiety Epistaxis, recurrent Surgical History History of esophagogastroduodenoscopy (EGD) No pertinent past surgical history Family History Family History Maternal Grandmother Alzheimers disease Social History Social History Housing: House Alcohol intake: current Alcohol intake frequency: holidays/special occasions only Patient Tobacco Use Status: Former Tobacco user Years Smoked: 30 e-Cigarette/Vaping Use: Never Used Second Hand Smoke Exposure: No Advance Directives: No Advance Directives Information Provided: Yes Current occupational status: unemployed Cognitive needs: No Hearing needs: No Vision needs: No Physical Exam ED Vital Signs: Vital Signs - 24 hr 01/29/25 12:05 01/29/25 14:38 Temperature 97.8 F Pulse Rate 76 55 Respiratory Rate 18 16 Blood Pressure 141/69 H 134/75 Pulse Oximetry 99 100 Oxygen Delivery Method Room Air Room Air BMI result Body Mass Index 19.1 Vital signs have been reviewed and appear to be correct. Blood pressure elevated. Heart rate normal. Respiratory rate normal. Temperature normal. Oxygen saturation normal. Appearance: Alert. Oriented X3. No acute distress. Head: Normal external exam. Normocephalic. Atraumatic. No Otero signs noted. No raccoon eyes noted Eyes: PERRLA. EOMI. Conjunctiva and sclera normal. Eyelids normal. ENT: TM's Normal. Pharynx normal. Uvula midline. Moist mucous membranes. No trismus noted. No drooling noted. No muffled voice noted. Neck: Normal inspection. Neck supple. FROM. No adenopathy. Thyroid Normal. No meningeal signs. No neck mass noted. CVS: Normal heart rate and rhythm. Heart sound normal. No murmurs noted. Pulses normal throughout. Respiratory: No respiratory distress. Painless inspiration. Breath sounds normal. No wheezes/rales/rhonchi noted. Chest nontender. No accessory muscle usage noted or decreased air movement noted. Abdomen: Soft and nontender. Bowel sounds normal in all 4 quadrants. No distention noted. No organomegaly noted. No visible injury noted. Back: No CVA tenderness. Full range of motion noted. Skin: Skin warm and dry. Normal skin color. Normal skin turgor. No rashes/lesions/lacerations noted. Extremities: No lower extremity edema. Extremities exhibit normal range of motion. Extremities nontender. Neuro: Mental status: Normal attention, orientation, memory, and affect. Cranial nerves: Pupils are equal, round and reactive to light, EOMI, visual thorne are fall, face is symmetric, facial sensations are normal. Motor examination normal muscle tone, strength to 4 extremities. DTR are +2, planter's are flexor. Sensory exam; normal coordination, no ataxia, gait stable. Cerebellar exam: Dawzvb-vk-xcdo and frnm-lo-hqgg is normal. Extrapyramidal system: No tremors, no rigidity with normal facial expressions. Pronator drift not present Course Course Course Narrative: RME, this is a rapid medical exam performed by Kraig Melvin please refer to primary provider for complete H&P- 59-year-old female presents for evaluation of sudden-onset headache and dizziness that started 2 days ago. [email or web address] but was not doing anything excessive. She has been having neck pain ever since. She went to [facility] that night due to persistent vomiting with her dizziness. She had a CT scan of the head without contrast that was reportedly normal and she had left without treatment. The patient was not seen by provider. She went to urgent care today and was referred here to have a CTA of her head and neck. In triage, the patient has no neuro deficits Reevaluation(s) Reevaluation #1: A 59-year-old female with headache started 3 days ago after she drank alcohol, started with nausea, vomiting, headache, and neck pain. Patient's symptoms gradually improving, no trauma to suspect C-spine injury no gross abnormality on CTA of the head and neck. Time: 15:03 Medications Administered Discontinued Medications Generic Name Dose Route Start Last Admin Trade Name Rui PRN Reason Stop Dose Admin Iohexol 100 ml 01/29/25 13:41 01/29/25 13:41 Iohexol 350 Mg/Ml 100 Ml Infus..Btl IV 01/29/25 13:42 70 ml ONCE ONE Administration Medical Decision Making Differential Diagnosis Differential Diagnoses: The differential diagnosis associated with the presentation includes (Subarachnoid hemorrhage, carotid dissection, cervical spine injury, intracerebral aneurysm, stress for headache, electrolyte derangement, severe dehydration, anemia.) Admission/Observation Consideration of admission/observation: Escalation of care including admission/observation considered Lab Data MDM Lab Attestation statement: I reviewed the patient's lab results. 01/29/25 12:27 01/29/25 12:27 Labs: Lab Results 01/29/25 Range/Units 12:27 WBC 8.0 (4.8-10.8) X10*3/uL RBC 4.30 (4.20-5.50) X10*6/uL Hgb 13.4 (12.0-16.0) g/dl Hct 39.6 (37.0-47.0) % MCV 92.1 (80.0-98.0) fL MCH 31.2 (27.0-33.0) pg MCHC 33.8 (31.0-35.0) g/dl RDW 11.9 (11.0-16.0) % Plt Count 256 (160-400) X10*3/uL MPV 10.2 (9.4-12.3) fL Immature Gran % (Auto) 0.1 (0.0-0.4) % Neut % (Auto) 60.5 (45-73) % Lymph % (Auto) 30.4 (20-40) % [place] % (Auto) 6.5 (2-11) % Eos % (Auto) 1.5 (0-4) % Baso % (Auto) 1.0 (0-2) % Lymph # (Auto) 2.4 (1.2-4.9) X10*3/uL [place] # (Auto) 0.5 (0.1-1.2) X10*3/uL Eos # (Auto) 0.1 (0.0-0.4) X10*3/uL Baso # (Auto) 0.1 (0.0-0.2) X10*3/uL Abs Immat Gran (auto) 0.01 (0.00-0.03) X10*3/uL Absolute Neuts (auto) 4.9 (2.0-8.3) x10*3/uL Absolute Nucleated RBC 0.000 (0.0-0.012) X10*3/uL Nucleated RBC % (auto) 0.0 (0.0-0.2) /100WBC Sodium 143 (135-145) mmol/L Potassium 4.1 (3.3-5.1) mmol/L Chloride 107 (96-108) mmol/L Carbon Dioxide 28 (22-29) mmol/L Anion Gap 12 (12-20) BUN 15 (9-16) mg/dL Creatinine 0.88 (0.5-1.4) mg/dL Estim Creat Clear Calc 61.5 Estimated GFR > 60 Random Glucose 115 (60-115) mg/dL Calcium 9.8 (8.4-10.2) mg/dL Total Bilirubin 0.4 (0.0-1.0) mg/dL AST 25 (5-31) U/L ALT 16 (0-31) U/L Alkaline Phosphatase 63 (39-117) U/L Troponin I High Sens < 2.7 (<3.5-17.0) ng/L Total Protein 7.3 (6.5-8.0) g/dL Albumin 4.7 (3.5-5.0) g/dL Independent Interpretation I performed an independent interpretation of an: CT Scan (Head/CTA head and neck.1. No intracranial hemorrhage or mass effect. No CT evidence of acute territorial infarct. CTA NECK: 1. No evidence of significant stenosis, occlusion, dissection, or aneurysm of the major cervical arterial vasculature. 2. There are several left-sided thyroid nodules measu) Radiology Impression Discussion of test interpretation with radiology: I have reviewed the radiologist's reading. Discharge Plan Discharge Clinical Impression: Cervicalgia, Headache Patient Disposition: Home, Self-Care Instructions: Acute Headache (ED), Neck Pain (ED) Prescriptions: New cyclobenzaprine 10 mg tablet 10 mg PO TID PRN (Reason: muscle spasm) Qty: 14 0RF No Action metronidazole 500 mg tablet 500 mg PO TID 10 Days Qty: 30 0RF pantoprazole 40 mg tablet,delayed release (DR/EC) 40 mg PO DAILY Qty: 90 1RF Advanced Probiotic-14 3 billion cell capsule PO Referrals: Caprice Alva MD [Primary Care Provider, Internal Medicine] Print Language: [place]
[2025-01-29 12:30] LABS: MANUAL DIFF FLAG NO
[2025-01-29 12:36] LABS: Hematocrit 39.6 % (37.0-47.0); Hemoglobin 13.4 g/dl (12.0-16.0); Imm Gran Abs Auto 0.01 X10*3/uL (0.00-0.03); Imm Gran Pct Auto 0.1 % (0.0-0.4); Lymphocytes Absolute Auto 2.4 X10*3/uL (1.2-4.9); Mean Corpuscular HGB Conc 33.8 g/dl (31.0-35.0); Mean Corpuscular Hemoglobin 31.2 pg (27.0-33.0); Mean Corpuscular Volume 92.1 fL (80.0-98.0); NRBC Abs Auto 0.000 X10*3/uL (0.0-0.012); NRBC Pct Auto 0.0 /100WBC (0.0-0.2); Platelet Count 256 X10*3/uL (160-400); Red Blood Count 4.30 X10*6/uL (4.20-5.50); White Blood Count 8.0 X10*3/uL (4.8-10.8)
[2025-01-29 12:50] LABS: Alanine Aminotransferase 16 U/L (0-31); Albumin Level 4.7 g/dL (3.5-5.0); Alkaline Phosphatase 63 U/L (39-117); Anion Gap 12 (12-20); Aspartate Amino Transferase 25 U/L (5-31); Blood Urea Nitrogen 15 mg/dL (9-16); Calcium 9.8 mg/dL (8.4-10.2); Carbon Dioxide 28 mmol/L (22-29); Chloride 107 mmol/L (96-108); Creatinine Clr Calc Pharmacy 61.5; Estimated Glomerular Filt Rate > 60; Potassium 4.1 mmol/L (3.3-5.1); Sodium 143 mmol/L (135-145); Total Protein 7.3 g/dL (6.5-8.0)
[2025-01-29 12:59] LABS: Troponin-I High Sensitivity < 2.7 ng/L (<3.5-17.0)
[2025-01-29] MEDS: iohexoL 350 MG/ML 100 ML INFUS..BTL IV (13:41)
[2025-01-29 14:38] VITALS: BP 134/75; PULSE 55; RESP 16; O2SAT 100
[2025-01-29 15:30] VITALS: BP 134/75; PULSE 55; RESP 16; TEMP 36.6; O2SAT 100
== END 2025-01-29 15:30 | disposition home or self-care (01) ==
PROVIDERS: Physician Assistant; Emergency Provider Emergency Medicine; PCP Internal Medicine
DX: R51.9 Headache, unspecified (principal); M54.2 Cervicalgia; Z87.39 Personal history of other diseases of the musculoskeletal system and connective tissue
CPT/HCPCS: 36415; 70496; 70498; 80053; 84484; 85025; 93005; 99212; 99284; Q9967

== ENCOUNTER → 2025-01-29 12:09 | Outpatient (BNV) | payer OTHER, SELFPAY | PROVIDERS: Emergency Provider Emergency Medicine; PCP Internal Medicine; Visit Provider Radiology Diagnostic Radiology | DX: G44.53 Primary thunderclap headache (principal) | CPT/HCPCS: 70496; 70498 ==

== ENCOUNTER → 2025-01-29 12:09 | Outpatient (BNV) | payer OTHER, SELFPAY | PROVIDERS: Emergency Provider Emergency Medicine; PCP Internal Medicine; Visit Provider Internal Medicine Cardiovascular Disease | DX: R42 Dizziness and giddiness (principal) | CPT/HCPCS: 93010 ==

== ENCOUNTER 2025-02-02 15:53 | Emergency (ER) | payer OTHER, SELFPAY ==
[2025-02-02 15:56] VITALS: BP 114/80; PULSE 102; RESP 16; TEMP 36.6; O2SAT 96; BMI 19.3
--- NOTE | 2025-02-02 15:56 | ED_ITS ---
HPI - General Adult General Chief complaint: Syncope Stated complaint: head pain caused her to pass out Time Seen by Provider: 02/02/25 19:33 Source: patient Limitations: no limitations History of Present Illness ED Provider: Ilsa Shah PA-C HPI narrative: 59-year-old female with a known cervical DDD presents with ongoing neck pain and headache. Patient complains of ongoing posterior neck stiffness with posterior headache. The headache is severe, worse with position change from lying down to sitting up. Associated neck stiffness, photophobia, phonophobia. Denies fever, nausea, vomiting, dizziness. Denies recent cough or cold symptoms. Patient's symptoms began on January 26 after she drank a small amount of alcohol. At that point, she developed lightheadedness, with nausea vomiting. She was seen at [facility] had a non-con CT scan of the head which was normal. Patient presented back to our emergency department on January 29, with refractory symptoms. She had a stroke workup which was negative, she was diagnosed with cervicalgia. Patient returns to the emergency department with refractory symptoms. She was discharged home with a muscle relaxant that has been ineffective. Denies preceding heavy lifting injury with onset of initial symptoms. Related Data Home Medications ?Medication ?Instructions ?Recorded ?Confirmed Skdnkdzppaaue-Hyjwhjatreyboye-Y.thermophilus cap PO 09/13/24 3 billion cell capsule (Advanced Probiotic-14) Previous Rx's ?Medication ?Instructions ?Recorded metronidazole 500 mg tablet 500 mg PO TID 10 days #30 tabs 09/13/24 pantoprazole 40 mg tablet,delayed 40 mg PO DAILY for h eartburn #90 09/13/24 release tabs cyclobenzaprine 10 mg tablet 10 mg PO TID PRN muscle s pasm #14 01/29/25 tabs diazepam 5 mg tablet (Valium) 5 mg PO TID PRN pain, mo derate #15 02/03/25 tabs ketorolac 10 mg tablet 10 mg PO Q6H PRN pain #20 ta bs 02/03/25 ondansetron 4 mg disintegrating 4 mg PO Q8H PRN nausea and 02/03/25 tablet vomiting #20 tabs prochlorperazine maleate 10 mg 10 mg PO Q6H PRN nausea and 02/03/25 tablet (Compazine) vomiting #12 tabs Allergies Allergy/AdvReac Type Severity Reaction Status Date / Time No Known Allergies Allergy Verified 02/05/25 02:06 Review of Systems 2 Review of Systems: Yes all other systems are reviewed and are negative Constitutional: Constitutional: Denies fatigue, Denies fever(s) and Reports headache(s) Eyes: Eyes: Reports photophobia ENT: Denies dizziness, Reports headache(s) and Reports neck pain Cardiovascular: Cardiovascular: Denies chest pain and Denies dyspnea Respiratory: Respiratory: Denies dyspnea Gastrointestinal: Gastrointestinal: Denies abdominal pain, Denies nausea and Denies vomiting Musculoskeletal: Musculoskeletal: Denies back pain, Reports neck pain, Denies numbness, Reports stiffness and Denies tingling Neurologic: Denies dizziness, Reports headache(s), Denies numbness and Denies tingling Endocrine: Endocrine: Denies fatigue PMFSH Past Medical History Attestation statement: The following information was validated with the patient. Medical History Upper abdominal pain Cervicalgia Chest wall tenderness Neck strain Former smoker Tobacco abuse disorder Heartburn Acute anxiety Epistaxis, recurrent Surgical History History of esophagogastroduodenoscopy (EGD) No pertinent past surgical history Family History Family History Maternal Grandmother Alzheimers disease Social History Social History Housing: House Alcohol intake: current Alcohol intake frequency: does not drink Patient Tobacco Use Status: Former Tobacco user Years Smoked: 30 e-Cigarette/Vaping Use: Never Used Second Hand Smoke Exposure: No Advance Directives: Yes Advance Directives on File: Yes Advance Directives Date on File: 06/10/24 Do you have a plan to hurt others: No Plan Patient : No Current occupational status: unemployed Cognitive needs: No Hearing needs: No Vision needs: No Physical Exam ED Vital Signs: Vital Signs - 24 hr 02/02/25 15:56 02/02/25 17:56 02/02/25 18:00 Temperature 97.9 F 98.7 F 98.5 F Pulse Rate 102 H 72 84 Respiratory Rate 16 19 19 Blood Pressure 114/80 141/83 H 114/71 Pulse Oximetry 96 98 99 Oxygen Delivery Method Room Air Room Air Room Air 02/02/25 20:05 02/02/25 23:57 Temperature 98.9 F Pulse Rate 70 Respiratory Rate 14 Blood Pressure 136/81 Pulse Oximetry 99 97 Oxygen Delivery Method Room Air Room Air BMI result Body Mass Index 19.3 Const Other: Alert, appears uncomfortable Orientation/consciousness: patient oriented x3 Eyes Other: Pupils of equal size Direct Ophthalmoscopy: photophobia Neck Other: Patient able to perform range of motion of the neck, limited with the looking up and down toward the chest, able to arrange right to left, no meningeal signs, no nuchal rigidity, the patient is able to bend forward and curl into a ball, holding her knees toward the chest Resp Effort & Inspection: normal respiratory effort Cardio Other: Normal peripheral perfusion Skin Other: Warm dry no rash Neuro General: patient oriented x3, gait normal, no focal motor deficits and CN's II- XI intact bilaterally Psych Other: Cooperative Course Course Course Narrative: RME, this is a rapid medical exam performed by Kraig Melvin please refer to primary provider for complete H&P- 59 year old female presents for evaluation of a severe headache. She was seen here 2 days ago and had CTA of the ehad and neck due to posterior headache, neck pain, and dizziness with vomiting. This was an unremarkable study. She represents arleth due to worsening pain and passing out about 2 hours prior to arrival. She called her doctor who recommended she return to the emergency department. Plan for labs and an EKG Reevaluation(s) Reevaluation #1: The IV Toradol and Valium did not offer considerable relief, the Occipital nerve block did not help the patient's symptoms, we will give a migraine cocktail Reevaluation #2: Much improved, we will discharge home now Time: 02:41 Medications Administered Discontinued Medications Generic Name Dose Route Start Last Admin Trade Name Freq PRN Reason Stop Dose Admin Dexamethasone Sodium Phosphate 10 mg 02/02/25 22:05 02/02/25 22:29 Dexamethasone Sod Phosphate 10 Mg/Ml Vial IVPUSH 02/02/25 22:06 10 mg ONCE ONE Administration Diazepam 5 mg 02/02/25 20:05 02/02/25 20:36 Diazepam 10 Mg/2 Ml Cartridge IVPUSH 02/02/25 20:06 5 mg STAT STA Administration Diphenhydramine HCl 25 mg 02/02/25 22:05 02/02/25 22:29 Diphenhydramine Hcl 50 Mg/Ml Vial IVPUSH 02/02/25 22:06 25 mg ONCE ONE Administration Acetaminophen 1,000 mg in 100 mls @ 400 mls/hr 02/02/25 22:05 02/02/25 22:43 Ofirmev IV 02/02/25 22:19 Infused ONCE ONE Infusion Sodium Chloride 1,000 mls @ 999 mls/hr 02/02/25 22:15 02/02/25 23:59 Ns IV 02/02/25 23:15 Infused .Q1H1M J LUIS Infusion Ketorolac Tromethamine 15 mg 02/02/25 20:05 02/02/25 20:36 Ketorolac Tromethamine 15 Mg/Ml Vial IVPUSH 02/02/25 20:06 15 mg ONCE ONE Administration Lidocaine HCl 10 ml 02/02/25 19:58 02/02/25 20:36 Lidocaine Hcl 1 % 20 Ml Vial INFILTRATI 02/02/25 19:59 10 ml ONCE ONE Administration Prochlorperazine Edisylate 10 mg 02/02/25 22:05 02/02/25 22:29 Prochlorperazine Edisylate 10 Mg/2 Ml Vial IVPUSH 02/02/25 22:06 10 mg ONCE ONE Administration Procedures Nerve Block Nerve Block 1: Time out performed: No Local Anesthetic: lidocaine 1% Amount of anesthesia used (mL): 5 (each side) Side: left and right Nerve Blocks: occipital Procedure Successful: Yes Patient Tolerated Procedure: well Complications: none Additional Comments: Symptoms remain refractory Medical Decision Making Medical Decision Making MDM Narrative: 59-year-old female with a known cervical DDD presents with ongoing neck pain and headache. Patient complains of ongoing posterior neck stiffness with posterior headache. The headache is severe, worse with position change from lying down to sitting up. Associated neck stiffness, photophobia, phonophobia. Denies fever, nausea, vomiting, dizziness. Denies recent cough or cold symptoms. Patient's symptoms began on January 26 after she drank a small amount of alcohol. At that point, she developed lightheadedness, with nausea vomiting. She was seen at [facility] had a non-con CT scan of the head which was normal. Patient presented back to our emergency department on January 29, with refractory symptoms. She had a stroke workup which was negative, she was diagnosed with cervicalgia. Patient returns to the emergency department with refractory symptoms. She was discharged home with a muscle relaxant that has been ineffective. Denies preceding heavy lifting injury with onset of initial symptoms. Problem: Cervical degenerative disc disease History: Per patient I have considered the following differential diagnoses: Intracranial hemorrhage, meningitis, VAD, tension headache, migraine headache, occipital neuralgia Plan: Patient here with refractory posterior headache that is severe, with concurrent neck pain and stiffness. The patient has known degenerative disc disease of the cervical spine, this could be a tension type headache with migraine features. We will start with an anti-inflammatory and IV Valium. Given posterior symptoms, I have considered a occipital neuralgia, the patient is amenable to a nerve block, I will infiltrate 5 mL of lidocaine bilaterally in the region of the lesser occipital nerve distribution. Thought about meningitis, however there are no meningeal signs on exam, the patient has not had any recent illness no fevers. Thought about VAD, however the patient did not have a preceding heavy lifting mechanism, she is also neurologically intact, she also just had negative CT angiograms of the head and neck. Less likely to be intracranial hemorrhage, the patient has had 2 non-con CT studies of the brain that were negative, followed by angiograms that were negative, I am not inclined to repeat the study. I have independently reviewed the following tests: Labs: No leukocytosis, not anemic, no electrolyte abnormality noted Differential Diagnosis Differential Diagnoses: The differential diagnosis associated with the presentation includes See [facility] Admission/Observation Consideration of admission/observation: Escalation of care including admission/observation considered Not applicable Lab Data [facility] Lab Attestation statement: I reviewed the patient's lab results. 02/02/25 16:21 02/02/25 16:21 Labs: Lab Results 02/02/25 Range/Units 16:21 WBC 10.6 (4.8-10.8) X10*3/uL RBC 4.36 (4.20-5.50) X10*6/uL Hgb 13.3 (12.0-16.0) g/dl Hct 38.5 (37.0-47.0) % MCV 88.3 (80.0-98.0) fL MCH 30.5 (27.0-33.0) pg MCHC 34.5 (31.0-35.0) g/dl RDW 11.3 (11.0-16.0) % Plt Count 252 (160-400) X10*3/uL MPV 9.9 (9.4-12.3) fL Immature Gran % (Auto) 0.3 (0.0-0.4) % Neut % (Auto) 73.2 H (45-73) % Lymph % (Auto) 15.9 L (20-40) % [place] % (Auto) 9.2 (2-11) % Eos % (Auto) 0.9 (0-4) % Baso % (Auto) 0.5 (0-2) % Lymph # (Auto) 1.7 (1.2-4.9) X10*3/uL [place] # (Auto) 1.0 (0.1-1.2) X10*3/uL Eos # (Auto) 0.1 (0.0-0.4) X10*3/uL Baso # (Auto) 0.1 (0.0-0.2) X10*3/uL Abs Immat Gran (auto) 0.03 (0.00-0.03) X10*3/uL Absolute Neuts (auto) 7.8 (2.0-8.3) x10*3/uL Absolute Nucleated RBC 0.000 (0.0-0.012) X10*3/uL Nucleated RBC % (auto) 0.0 (0.0-0.2) /100WBC Sodium 139 (135-145) mmol/L Potassium 4.2 (3.3-5.1) mmol/L Chloride 103 (96-108) mmol/L Carbon Dioxide 26 (22-29) mmol/L Anion Gap 14 (12-20) BUN 12 (9-16) mg/dL Creatinine 0.90 (0.5-1.4) mg/dL Estim Creat Clear Calc 60.7 Estimated GFR > 60 Random Glucose 112 (60-115) mg/dL Calcium 9.4 (8.4-10.2) mg/dL Total Bilirubin 0.9 (0.0-1.0) mg/dL AST 28 (5-31) U/L ALT 18 (0-31) U/L Alkaline Phosphatase 62 (39-117) U/L Troponin I High Sens < 2.7 (<3.5-17.0) ng/L Total Protein 7.3 (6.5-8.0) g/dL Albumin 4.5 (3.5-5.0) g/dL Lipase 18 (8-78) U/L Critical Care Time Critical Care Time Critical Care Time: Yes Total Critical Care Time: 35 Attestation: I Ilsa Shah PA-C have personally performed 35 minutes of critical care time not including lines and procedures; refractory headache, need for multiple IV medications, occipital nerve blocks Discharge Plan Discharge Clinical Impression: Cervicalgia, Migraine, Tension headache Patient Disposition: Home, Self-Care Instructions: Migraine Headache (ED), Tension Headache (ED), Neck Pain (ED) Additional Instructions: You were treated for a tension type headache vs migraine. You responded to therapy. I do feel that your underlying cervical arthritis is the likely precipitating factor for your symptoms. See home care instructions. For your neck discomfort, use the Valium as needed, this is a muscle relaxant. To note this medication will cause drowsiness, do not drive or operate machinery while taking the medication. You can also use the ketorolac as directed, take this medication with food, this is an anti-inflammatory. If you develop another headache, take the combination of medications listed below: Tylenol 1000 mg Ketorolac 10 mg Compazine 10 mg Benadryl 25 mg If there was associated neck pain take the Valium This is the medication combination we utilized in the emergency department to help alleviate your discomfort. Follow up with your primary care provider, you may require a referral to Neurology if your headaches remain refractory. I am providing you with a contact for our orthopedic service, given your underlying cervical arthritis, you may benefit from cortisone joint injections. You can call to schedule a consult. Prescriptions: New ketorolac 10 mg tablet 10 mg PO Q6H PRN (Reason: pain) Qty: 20 0RF Rx Instructions: maximum total duration of 5 days from all oral, intranasal, or parenteral formulations. The patient received an IV dose of Toradol here in the emergency room diazepam [Valium] 5 mg tablet 5 mg PO TID PRN (Reason: pain, moderate) Qty: 15 0RF prochlorperazine maleate [Compazine] 10 mg tablet 10 mg PO Q6H PRN (Reason: nausea and vomiting) Qty: 12 0RF No Action ondansetron 4 mg tablet,disintegrating 4 mg PO Q8H PRN (Reason: nausea and vomiting) Qty: 20 0RF cyclobenzaprine 10 mg tablet 10 mg PO TID PRN (Reason: muscle spasm) Qty: 14 0RF metronidazole 500 mg tablet 500 mg PO TID 10 Days Qty: 30 0RF pantoprazole 40 mg tablet,delayed release (DR/EC) 40 mg PO DAILY Qty: 90 1RF Advanced Probiotic-14 3 billion cell capsule PO Interventions: ED Discharge Assessment Last Done: 02/03/25 03:10 Discharge Date/Time: 02/03/25 03:10 Print Language: Mauritian
--- NOTE | 2025-02-02 15:56 | ECG_ITS ---
Test Reason : SYNCOPE Blood Pressure : */* mmHG Vent. Rate : 78 BPM Atrial Rate : 78 BPM P-R Int : 138 ms QRS Dur : 76 ms QT Int : 366 ms P-R-T Axes : 70 78 66 degrees QTcB Int : 417 ms Normal sinus rhythm Biatrial enlargement Abnormal ECG When compared with ECG of 29-Jan-2025 12:21, No significant change was found Referred By: Cameron Melvin Electronically Signed By: HAILEE HERNANDEZ
[2025-02-02 16:25] LABS: MANUAL DIFF FLAG NO
[2025-02-02 16:27] LABS: Hematocrit 38.5 % (37.0-47.0); Hemoglobin 13.3 g/dl (12.0-16.0); Imm Gran Abs Auto 0.03 X10*3/uL (0.00-0.03); Imm Gran Pct Auto 0.3 % (0.0-0.4); Lymphocytes Absolute Auto 1.7 X10*3/uL (1.2-4.9); Mean Corpuscular HGB Conc 34.5 g/dl (31.0-35.0); Mean Corpuscular Hemoglobin 30.5 pg (27.0-33.0); Mean Corpuscular Volume 88.3 fL (80.0-98.0); NRBC Abs Auto 0.000 X10*3/uL (0.0-0.012); NRBC Pct Auto 0.0 /100WBC (0.0-0.2); Platelet Count 252 X10*3/uL (160-400); Red Blood Count 4.36 X10*6/uL (4.20-5.50); White Blood Count 10.6 X10*3/uL (4.8-10.8)
[2025-02-02 16:45] LABS: Alanine Aminotransferase 18 U/L (0-31); Albumin Level 4.5 g/dL (3.5-5.0); Alkaline Phosphatase 62 U/L (39-117); Anion Gap 14 (12-20); Aspartate Amino Transferase 28 U/L (5-31); Blood Urea Nitrogen 12 mg/dL (9-16); Calcium 9.4 mg/dL (8.4-10.2); Carbon Dioxide 26 mmol/L (22-29); Chloride 103 mmol/L (96-108); Creatinine Clr Calc Pharmacy 60.7; Estimated Glomerular Filt Rate > 60; Lipase 18 U/L (8-78); Potassium 4.2 mmol/L (3.3-5.1); Sodium 139 mmol/L (135-145); Total Protein 7.3 g/dL (6.5-8.0)
[2025-02-02 16:57] LABS: Troponin-I High Sensitivity < 2.7 ng/L (<3.5-17.0)
[2025-02-02 17:56] VITALS: BP 141/83; PULSE 72; RESP 19; TEMP 37.1; O2SAT 98
[2025-02-02 18:00] VITALS: BP 114/71; PULSE 84; RESP 19; TEMP 36.9; O2SAT 99
[2025-02-02 20:05] VITALS: BP 136/81; PULSE 70; RESP 14; TEMP 37.2; O2SAT 99
[2025-02-02] MEDS: Lidocaine HCl 1 % 20 ML VIAL 10 ML INFILTRATI (20:36)
[2025-02-02] MEDS: diazePAM 10 MG/2 ML CARTRIDGE 5 MG IVPUSH (20:36)
[2025-02-02 23:57] VITALS: O2SAT 97
[2025-02-03 03:01] VITALS: BP 135/67; PULSE 68; RESP 18; TEMP 36.7; O2SAT 96
[2025-02-03 03:10] VITALS: BP 135/67; PULSE 68; RESP 18; TEMP 36.7; O2SAT 96
== END 2025-02-03 03:10 | disposition home or self-care (01) ==
PROVIDERS: Physician Assistant; Emergency Provider Emergency Medicine; PCP Internal Medicine
DX: R55 Syncope and collapse (principal); M54.2 Cervicalgia; G44.209 Tension-type headache, unspecified, not intractable; G43.909 Migraine, unspecified, not intractable, without status migrainosus; R94.31 Abnormal electrocardiogram [ECG] [EKG]; Z87.891 Personal history of nicotine dependence
CPT/HCPCS: 36415; 64405; 80053; 83690; 84484; 85025; 93005; 96361; 96374; 96375; 99284; 99285; J0131; J0737; J1100; J1200; J1885; J2003; J3360

== ENCOUNTER → 2025-02-02 15:56 | Outpatient (BNV) | payer OTHER, SELFPAY | PROVIDERS: Emergency Provider Emergency Medicine; PCP Internal Medicine; Visit Provider Internal Medicine | DX: I51.7 Cardiomegaly (principal) | CPT/HCPCS: 93010 ==

== ENCOUNTER 2025-02-05 02:01 | Emergency (ER) | payer OTHER, SELFPAY ==
[2025-02-05] VITALS (19 sets, daily range): BP systolic 107–159; BP diastolic 45–85; PULSE 43–97; RESP 12–17; TEMP 36.7–37.2; O2SAT 95–100; BMI 18.3
--- NOTE | 2025-02-05 | ECG_ITS ---
Test Reason : DIZZINESS Blood Pressure : */* mmHG Vent. Rate : 85 BPM Atrial Rate : 85 BPM P-R Int : 138 ms QRS Dur : 72 ms QT Int : 358 ms P-R-T Axes : 84 81 68 degrees QTcB Int : 426 ms Normal sinus rhythm Right atrial enlargement Borderline ECG When compared with ECG of 02-Feb-2025 16:15, No significant change was found Referred By: Generic ED Physician Electronically Signed By: HAILEE HERNANDEZ
[2025-02-05 02:58] LABS: MANUAL DIFF FLAG NO
[2025-02-05 02:59] LABS: Hematocrit 38.5 % (37.0-47.0); Hemoglobin 13.7 g/dl (12.0-16.0); Imm Gran Abs Auto 0.02 X10*3/uL (0.00-0.03); Imm Gran Pct Auto 0.2 % (0.0-0.4); Lymphocytes Absolute Auto 1.1 X10*3/uL (1.2-4.9); Mean Corpuscular HGB Conc 35.6 g/dl (31.0-35.0); Mean Corpuscular Hemoglobin 31.2 pg (27.0-33.0); Mean Corpuscular Volume 87.7 fL (80.0-98.0); NRBC Abs Auto 0.000 X10*3/uL (0.0-0.012); NRBC Pct Auto 0.0 /100WBC (0.0-0.2); Platelet Count 241 X10*3/uL (160-400); Red Blood Count 4.39 X10*6/uL (4.20-5.50); White Blood Count 10.2 X10*3/uL (4.8-10.8)
--- OUTSIDE RECORDS SUMMARY | 2025-02-05 03:01 | XMS_ITS | Clinical Summary ---
Author Organization [facility] Address [address] [place] [address] Phone Care Team Providers Care Bond Writer Name Role Phone Physician, No Pcp Primary Care Provider Unavaila ble Allergies No known active allergies Medications No known medications Active Problems No known active problems Encounters Date Type Department Care Team Description 01/27/2025 9:27 PM EDT - 01/28/2025 12:12 AM EDT Emergency [facility] Emergency [address] [place] [address] Discharge Disposition: Left Against Medical Advice from Last 3 Months Social History Tobacco [...] Result from Last 3 Months Insurance PLAN Care Teams Bond Writer Relationship Specialty Start Date End Date Physician, No Pcp PCP - General 01/28/25
[2025-02-05 03:15] LABS: Alanine Aminotransferase 17 U/L (0-31); Albumin Level 4.2 g/dL (3.5-5.0); Alkaline Phosphatase 57 U/L (39-117); Anion Gap 13 (12-20); Aspartate Amino Transferase 24 U/L (5-31); Blood Urea Nitrogen 7 mg/dL (9-16); Calcium 9.4 mg/dL (8.4-10.2); Carbon Dioxide 27 mmol/L (22-29); Chloride 106 mmol/L (96-108); Creatinine Clr Calc Pharmacy 56.2; Estimated Glomerular Filt Rate > 60; Magnesium 1.8 mg/dL (1.6-2.6); Potassium 4.4 mmol/L (3.3-5.1); Sodium 142 mmol/L (135-145); Total Protein 6.7 g/dL (6.5-8.0)
[2025-02-05 03:29] LABS: Troponin-I High Sensitivity < 2.7 ng/L (<3.5-17.0)
[2025-02-05 06:07] LABS: Resp Syncy Virus RNA Qual PCR NEGATIVE (Negative); SARS COV2 PCR INHOUSE NEGATIVE (Negative)
--- NOTE | 2025-02-05 08:14 | ED_ITS ---
HPI - Headache General Chief Complaint: Headache Stated Complaint: head pain Time Seen by Provider: 02/05/25 07:53 Source: patient Mode of arrival: ambulatory Limitations: no limitations History of Present Illness ED Provider: HPI Narrative: This is a 59-year-old woman who is here with a persistent headache for the past 9 days, when she developed a headache it was not sudden onset and she did present to the emergency department at that time and had CT angio done, she then returned, she told me that she has had injection to the neck area with lidocaine, she was given medications, and has had a persistent headache for the past 9 days and had an episode of diarrhea today as well. No chest pain no fevers or chills. Related Data Home Medications ?Medication ?Instructions ?Recorded ?Confirmed [id number]-B.thermophilus cap PO 09/13/24 3 billion cell capsule (Advanced Probiotic-14) Previous Rx's ?Medication ?Instructions ?Recorded metronidazole 500 mg tablet 500 mg PO TID 10 days #30 tabs 09/13/24 pantoprazole 40 mg tablet,delayed 40 mg PO DAILY for h eartburn #90 09/13/24 release tabs cyclobenzaprine 10 mg tablet 10 mg PO TID PRN muscle s pasm #14 01/29/25 tabs diazepam 5 mg tablet (Valium) 5 mg PO TID PRN pain, mo derate #15 02/03/25 tabs ketorolac 10 mg tablet 10 mg PO Q6H PRN pain #20 ta bs 02/03/25 ondansetron 4 mg disintegrating 4 mg PO Q8H PRN nausea and 02/03/25 tablet vomiting #20 tabs prochlorperazine maleate 10 mg 10 mg PO Q6H PRN nausea and 02/03/25 tablet (Compazine) vomiting #12 tabs Allergies Allergy/AdvReac Type Severity Reaction Status Date / Time No Known Allergies Allergy Verified 02/05/25 02:06 Review of Systems 2 Constitutional: Constitutional: Reports as per HPI [facility] Past Medical History Medical History Upper abdominal pain Cervicalgia Chest wall tenderness Neck strain Former smoker Tobacco abuse disorder Heartburn Acute anxiety Epistaxis, recurrent Surgical History History of esophagogastroduodenoscopy (EGD) No pertinent past surgical history Family History Family History Maternal Grandmother Alzheimers disease Social History Social History Housing: House Alcohol intake: current Alcohol intake frequency: does not drink Patient Tobacco Use Status: Former Tobacco user Years Smoked: 30 e-Cigarette/Vaping Use: Never Used Second Hand Smoke Exposure: No Advance Directives: Yes Advance Directives on File: Yes Advance Directives Date on File: 06/10/24 Do you have a plan to hurt others: No Plan Patient : No Current occupational status: unemployed Cognitive needs: No Hearing needs: No Vision needs: No Physical Exam 2 Vital Signs: Vital Signs: Last Vital Signs Temp 98.9 F 02/05/25 10:05 Pulse 70 02/05/25 12:18 Resp 16 02/05/25 12:18 BP 135/75 02/05/25 12:18 Pulse Ox 98 02/05/25 12:18 O2 Del Method Room Air 02/05/25 12:18 BMI result Body Mass Index 18.3 Const: Other: * Gen: In discomfort * HEENT: PERRLA, EOMI, MMM, * Neck: No meningismus, tenderness along suboccipital area bilaterally * CV: RRR, no obvious murmurs appreciated * Resp: ?No wheezing rales rhonchi no stridor moving air well * Abd: ?Bowel sounds are present, no tenderness no rebound no rigidity * MSK: FROM, strength 5/5 all extremities * Skin: Warm, dry, intact, * Neuro: ?Alert and oriented x3, moving upper and lower extremities symmetrically, no obvious facial asymmetry noted, pupils reactive 3 mm bilaterally, moving upper and lower extremities as I mentioned, without sensory deficits and no dysmetria noted Medications Administered Discontinued Medications Generic Name Dose Route Start Last Admin Trade Name Freq PRN Reason Stop Dose Admin Acetaminophen 975 mg 02/05/25 05:11 02/05/25 05:16 Acetaminophen 325 Mg Tablet PO 02/05/25 05:12 975 mg ONCE ONE Administration Diazepam 2.5 mg 02/05/25 08:15 02/05/25 08:45 Diazepam 10 Mg/2 Ml Cartridge IVPUSH 02/05/25 08:16 2.5 mg STAT STA Administration Diphenhydramine HCl 25 mg 02/05/25 08:15 02/05/25 08:45 Diphenhydramine Hcl 50 Mg/Ml Vial IVPUSH 02/05/25 08:16 25 mg ONCE ONE Administration Fentanyl 75 mcg 02/05/25 09:45 02/05/25 09:56 Fentanyl Citrate/Pf 100 Mcg/2 Ml Vial IVPUSH 02/05/25 09:46 75 mcg ONCE ONE Administration Protocol Sodium Chloride 1,000 mls @ 999 mls/hr 02/05/25 08:15 02/05/25 09:46 Ns IV 02/05/25 09:15 Infused .Q1H1M J LUIS Infusion Methylprednisolone Sodium Succinate 125 mg 02/05/25 08:15 02/05/25 08:46 Methylprednisolone Sod Succ 125 Mg/2 Ml Vial IVPUSH 02/05/25 08:16 125 mg ONCE ONE Administration Metoclopramide HCl 10 mg 02/05/25 08:15 02/05/25 08:46 Metoclopramide Hcl 10 Mg/2 Ml Vial IVPUSH 02/05/25 08:16 10 mg ONCE ONE Administration Midazolam HCl 2 mg 02/05/25 09:45 02/05/25 10:39 Midazolam Hcl 2 Mg/2 Ml Vial IVPUSH 02/05/25 09:46 2 mg ONCE ONE Administration Ondansetron HCl 4 mg 02/05/25 04:58 02/05/25 05:02 Ondansetron Hcl 4 Mg/2 Ml Vial IVPUSH 02/05/25 04:59 4 mg ONCE ONE Administration Medical Decision Making Medical Decision Making [facility] Narrative: This is a recurrent issue but really has not resolved from initial onset, she went to [facility] in reports having a CAT scan there right away that was negative, next day after that she went to [facility] had another CAT scan and when she came here 3 days later she had CT angio down that was negative, continues to have headaches no fevers or chills no visual changes we will add on inflammatory markers to evaluate for temporal arteritis, I also spoke to the patient that maybe at this point lumbar puncture to evaluate for pleocytosis, infectious etiology, viral etiology, or old blood is indicated, at this point with just medicate and then reassess her we will discuss this again 09:45 I spoke to patient's currently patient somewhat sedate but I spoke to her about LP before that, obtain written consent from for LP I have also explained to him that this is no clinical indication for emergent MRI at this point but I do feel that LP is the next good study, she agrees with the plan. I have explained to the patient that infection and post LP headaches at 2 most common side effects. We will order fentanyl for headache now and then when I am able to get to her LP we will administer preprocedural Versed as well. 1105: Xanthochromia on LP, we will discuss with [facility] 1144: Discussed with Dr. Lamas, accepting physician is Dr. Jolley, they will call back with bed going to [facility] Differential Diagnosis Differential Diagnoses: The differential diagnosis associated with the presentation includes (Subarachnoid hemorrhage, cavernous venous thrombosis, acute angle closure glaucoma, temporal arteritis, meningitis, migraine headache, tension headache) 2022 Emergency Medicine Coding Guide from [employer] on 02/05/2025 All calculations should be rechecked by clinician prior to use RESULT SUMMARY: 5 Estimated Level of Service Problems: High (5) Risk: High (5) Data: Moderate (4) NARRATIVE MDM: This patient's problem complexity is High as patient: may have an acute or chronic illness/injury posing a threat to life or body function. This patient's risk is High due to: overall presentation requiring evaluation for a potentially High-risk process. This patient's data complexity is Moderate due to: -multiple tests ordered INPUTS: Number and Complexity ?> 2 = 5: illness/injury w/life or body threat (b) Risk level ?> 4 = High Tests ordered ?> 2 = 2 Tests results reviewed (excluding labs) ?> 1 = 1 Prior external notes reviewed ?> 0 = 0 Assessment requiring and independent historian ?> 0 = No Independent interpretation of tests ?> 0 = No Discussed management/test interpretation w/external professional ?> 0 = No Admission/Observation Consideration of admission/observation: Escalation of care including admission/observation considered Lab Data MDM Lab Attestation statement: I reviewed the patient's lab results. 02/05/25 02:52 02/05/25 02:52 Labs: Lab Results 02/05/25 02/05/25 02/05/25 Range/Units 02:52 05:07 11:06 WBC 10.2 (4.8-10.8) X10*3/uL RBC 4.39 (4.20-5.50) X10*6/uL Hgb 13.7 (12.0-16.0) g/dl Hct 38.5 (37.0-47.0) % MCV 87.7 (80.0-98.0) fL MCH 31.2 (27.0-33.0) pg MCHC 35.6 H (31.0-35.0) g/dl RDW 11.6 (11.0-16.0) % Plt Count 241 (160-400) X10*3/uL MPV 9.5 (9.4-12.3) fL Immature Gran % (Auto) 0.2 (0.0-0.4) % Neut % (Auto) 76.5 H (45-73) % Lymph % (Auto) 11.1 L (20-40) % Tucker % (Auto) 8.8 (2-11) % Eos % (Auto) 2.8 (0-4) % Baso % (Auto) 0.6 (0-2) % Lymph # (Auto) 1.1 L (1.2-4.9) X10*3/uL Tucker # (Auto) 0.9 (0.1-1.2) X10*3/uL Eos # (Auto) 0.3 (0.0-0.4) X10*3/uL Baso # (Auto) 0.1 (0.0-0.2) X10*3/uL Abs Immat Gran (auto) 0.02 (0.00-0.03) X10*3/uL Absolute Neuts (auto) 7.8 (2.0-8.3) x10*3/uL Absolute Nucleated RBC 0.000 (0.0-0.012) X10*3/uL Nucleated RBC % (auto) 0.0 (0.0-0.2) /100WBC ESR 18 (0-20) MM/HR Sodium 142 (135-145) mmol/L Potassium 4.4 (3.3-5.1) mmol/L Chloride 106 (96-108) mmol/L Carbon Dioxide 27 (22-29) mmol/L Anion Gap 13 (12-20) BUN 7 L (9-16) mg/dL Creatinine 0.95 (0.5-1.4) mg/dL Estim Creat Clear Calc 56.2 Estimated GFR > 60 Random Glucose 121 H (60-115) mg/dL Calcium 9.4 (8.4-10.2) mg/dL Magnesium 1.8 (1.6-2.6) mg/dL Total Bilirubin 0.6 (0.0-1.0) mg/dL AST 24 (5-31) U/L ALT 17 (0-31) U/L Alkaline Phosphatase 57 (39-117) U/L Troponin I High Sens < 2.7 (<3.5-17.0) ng/L C-Reactive Protein 1.39 H (< or = 0.50) mg/dL Total Protein 6.7 (6.5-8.0) g/dL Albumin 4.2 (3.5-5.0) g/dL CSF Tube Number 1 CSF Volume ML CSF Appearance CSF Color CSF WBC MM*3 CSF RBC MM*3 CSF Neutrophils % CSF Lymphocytes % CSF Monocytes % % CSF Appearance (b) CSF Glucose mg/dL CSF Total Protein (15-45) mg/dL Influenza Type A (PCR) NEGATIVE (Negative) Influenza Type B (PCR) NEGATIVE (Negative) RSV RNA Qual (PCR) NEGATIVE (Negative) SARS-CoV-2 RNA (RT-PCR) NEGATIVE (Negative) 02/05/25 Range/Units 11:06 WBC (4.8-10.8) X10*3/uL RBC (4.20-5.50) X10*6/uL Hgb (12.0-16.0) g/dl Hct (37.0-47.0) % MCV (80.0-98.0) fL MCH (27.0-33.0) pg MCHC (31.0-35.0) g/dl RDW (11.0-16.0) % Plt Count (160-400) X10*3/uL MPV (9.4-12.3) fL Immature Gran % (Auto) (0.0-0.4) % Neut % (Auto) (45-73) % Lymph % (Auto) (20-40) % Tucker % (Auto) (2-11) % Eos % (Auto) (0-4) % Baso % (Auto) (0-2) % Lymph # (Auto) (1.2-4.9) X10*3/uL Tucker # (Auto) (0.1-1.2) X10*3/uL Eos # (Auto) (0.0-0.4) X10*3/uL Baso # (Auto) (0.0-0.2) X10*3/uL Abs Immat Gran (auto) (0.00-0.03) X10*3/uL Absolute Neuts (auto) (2.0-8.3) x10*3/uL Absolute Nucleated RBC (0.0-0.012) X10*3/uL Nucleated RBC % (auto) (0.0-0.2) /100WBC ESR (0-20) MM/HR Sodium (135-145) mmol/L Potassium (3.3-5.1) mmol/L Chloride (96-108) mmol/L Carbon Dioxide (22-29) mmol/L Anion Gap (12-20) BUN (9-16) mg/dL Creatinine (0.5-1.4) mg/dL Estim Creat Clear Calc Estimated GFR Random Glucose (60-115) mg/dL Calcium (8.4-10.2) mg/dL Magnesium (1.6-2.6) mg/dL Total Bilirubin (0.0-1.0) mg/dL AST (5-31) U/L ALT (0-31) U/L Alkaline Phosphatase (39-117) U/L Troponin I High Sens (<3.5-17.0) ng/L C-Reactive Protein (< or = 0.50) mg/dL Total Protein (6.5-8.0) g/dL Albumin (3.5-5.0) g/dL CSF Tube Number 4 CSF Volume 2.0 ML CSF Appearance TURBID CSF Color RED CSF WBC 735 H* MM*3 CSF RBC 17277 MM*3 CSF Neutrophils 36 % CSF Lymphocytes 47 % CSF Monocytes % 17 % CSF Appearance (b) Bloody CSF Glucose 18 mg/dL CSF Total Protein 84.4 H (15-45) mg/dL Influenza Type A (PCR) (Negative) Influenza Type B (PCR) (Negative) RSV RNA Qual (PCR) (Negative) SARS-CoV-2 RNA (RT-PCR) (Negative) Procedures Lumbar Puncture Time Out Performed: Yes Patient Position: right lateral decubitus Skin Prep: Povidone-Iodine 1% and 0.5% Chlorhexidine/Alcohol Local Anesthetic: lidocaine 2% Amount of anesthesia used (mL): 7 Spinal Needle Gauge: 22G Interspace Used: L4-L5 Fluid Initially Obtained: bloody Complications: none Additional Comments: Xanthochromia tubes 1 through 4 Critical Care Time Critical Care Time Critical Care Time: Yes Total Critical Care Time: 65 Attestation: Time is exclusive of separately billable procedures. Time includes: direct patient care, patient reassessment, coordination of patient care, interpretation of data (laboratory data, pulse oximetry, arterial blood gases and chest xrays), review of patient's medical records, medical consultation and documentation of patient care. Procedures excluded from critical care time: central intravenous line placement and electrocardiography. Discharge Plan Discharge Clinical Impression: Subarachnoid bleed Patient Disposition: [facility] Transfer Details: [facility] Prescriptions: No Action ondansetron 4 mg tablet,disintegrating 4 mg PO Q8H PRN (Reason: nausea and vomiting) Qty: 20 0RF cyclobenzaprine 10 mg tablet 10 mg PO TID PRN (Reason: muscle spasm) Qty: 14 0RF ketorolac 10 mg tablet 10 mg PO Q6H PRN (Reason: pain) Qty: 20 0RF Rx Instructions: maximum total duration of 5 days from all oral, intranasal, or parenteral formulations. The patient received an IV dose of Toradol here in the emergency room diazepam [Valium] 5 mg tablet 5 mg PO TID PRN (Reason: pain, moderate) Qty: 15 0RF prochlorperazine maleate [Compazine] 10 mg tablet 10 mg PO Q6H PRN (Reason: nausea and vomiting) Qty: 12 0RF metronidazole 500 mg tablet 500 mg PO TID 10 Days Qty: 30 0RF pantoprazole 40 mg tablet,delayed release (DR/EC) 40 mg PO DAILY Qty: 90 1RF Advanced Probiotic-14 3 billion cell capsule PO Print Language: Burmese
[2025-02-05] MEDS: diazePAM 10 MG/2 ML CARTRIDGE 2.5 MG IVPUSH (08:45)
--- NOTE | 2025-02-05 11:00 | PC.NURSE ---
LP performed by at 1039 - pt tolerated well w/ procedure. consent form signed w/ prior to procedure. vital signs remained stable throughout. on RA w/o difficultly. LP specimen's obtained/sent to lab by tech.
[2025-02-05 13:05] LABS: Lymphocytes CSF 47 %; Neutrophils CSF 36 %
[2025-02-05 13:08] LABS: Red Blood Cell CSF 38490 MM*3
[2025-02-05 13:12] LABS: White Blood Cell CSF 735 MM*3
--- NOTE | 2025-02-05 14:33 | PC.NURSE ---
REPORT TO CAREERS COUNSELLOR ON . TRANSPORTED VIA EMS
== END 2025-02-05 14:33 | disposition short-term general hospital (02) ==
PROVIDERS: Emergency Provider Emergency Medicine; PCP Internal Medicine
DX: I60.9 Nontraumatic subarachnoid hemorrhage, unspecified (principal); R42 Dizziness and giddiness; R51.9 Headache, unspecified; R19.7 Diarrhea, unspecified
CPT/HCPCS: 36415; 62272; 80053; 82945; 83735; 84157; 84484; 85025; 85652; 86140; 87015; 87070; 87205; 87476; 87483; 87637; 89051; 93005; 96361; 96374; 96375; 99285; J1200; J2250; J2405; J2765; J2919; J3010; J3360

== ENCOUNTER → 2025-02-05 02:14 | Outpatient (BNV) | payer OTHER, SELFPAY | PROVIDERS: Emergency Provider Emergency Medicine; PCP Internal Medicine; Visit Provider Internal Medicine | DX: I51.7 Cardiomegaly (principal) | CPT/HCPCS: 93010 ==

== ENCOUNTER 2025-02-19 13:10 | Outpatient (AMB) | payer OTHER, SELFPAY ==
--- NOTE | 2025-02-19 13:47 | MHC.PC.OV ---
Vital Signs 02/19/25 13:51 Height 5 ft 7 in Weight 126 lb BMI 19.7 BP 132/76 Blood Pressure Location Rt brachial Position Sitting Respiration 15 Pulse 78 Pulse Source Pulse Oximeter Temp 98.0 F Temp Source Oral Pulse Oximetry (%) 98 Oxygen Delivery Method Room Air Intake Visit Reasons: [facility] f/u Intake Note: Pt is here today to f/u HDF [facility] Allergies No Known Allergies Allergy (Verified 02/19/25 14:10) Medication List - Last Reconciled 02/19/25 by Caprice Alva MD ondansetron 4 mg PO Q8H PRN pantoprazole 40 mg PO DAILY prochlorperazine maleate (Compazine) 10 mg PO Q6H PRN Tobacco use date assessed: 02/19/25 Dental Screening Dental Screen Date: 02/19/25 Did you have a dental visit in the last 12 months?: Yes Did you have a dental problem in the last 6 months where you did not have access to dental care?: No Was dental information given to patient?: Patient has dentist HPI [facility] f/u HPI Details 59-year-old female with past medical history of gastroesophageal reflux disease, here today for a hospital discharge follow-up after recent admission at [facility] for subarachnoid hemorrhage. Underwent diagnostic angiogram which confirmed a left PICA distal aneurysm, MRI of the brain showed aneurysm as well as surrounding SWI hypodensity confirming subarachnoid hemorrhage. She underwent successful coiling of the aneurysm on 02/06 and remained neurologically intact until the evening of 9 1 washing sent to have symptoms of expressive/receptive aphasia and right-sided symptoms. CTA did not show any signs of vasospasm or LVO, not a candidate for lytics due to recent bleed. Clinical suspicion for seizure was high and she was started on Keppra. EEG was negative, there was no vasospasm seen on imaging, Neurology, recommended continued Keppra at discharge with a close follow-up in the neurology clinic. She was advised to not drive for six-months until seizure-free. During hospitalization she developed diarrhea and stool studies showed presence of Shiga toxin producing E coli. Patient treated supportively and diarrhea resolved, bowel movements now has been within normal limits She developed hyponatremia, hypomagnesemia and hypokalemia during her admission, which was attributed to diarrhea, so levels have now normalized Chest x-ray saw evidence of pneumonia but patient without any current pneumonias symptoms. Empirically placed on a course of doxycycline and ceftriaxone which already completed taking taking At present, patient states that she still feels weak in her legs, with some discomfort. Started since her discharge. Her appetite has improved, bowel movements have normalized, denies any headache, no lightheadedness. Symptoms [facility] a for follow-up with [facility] neurology, Dr.Janhvi Cotto, tomorrow at [facility] neurology clini [facility] Medical History (Updated 02/19/25 @ 15:05 by Caprice Alva MD) History of aphasia Aneurysm of posterior inferior cerebellar artery History of colitis History of spontaneous subarachnoid intracranial hemorrhage Former smoker Heartburn Epistaxis, recurrent Surgical History (Updated 02/19/25 @ 15:05 by Caprice Alva MD) Status post coil embolization of cerebral aneurysm History of esophagogastroduodenoscopy (EGD) No pertinent past surgical history Family History Maternal Grandmother Alzheimers disease Social History Housing: House Alcohol intake: current Alcohol intake frequency: does not drink Patient Tobacco Use Status: Former Tobacco user Years Smoked: 30 e-Cigarette/Vaping Use: Never Used Second Hand Smoke Exposure: No Advance Directives Date on File: 06/10/24 Current occupational status: unemployed Cognitive needs: No Hearing needs: No Vision needs: No Female Reproductive History Menstrual Age of Menarche: 19 Questionnaire PHQ-9 Over the last 2 weeks, how often have you been bothered by any of the following problems? 1. Little interest or pleasure in doing things: not at all 2. Feeling down, depressed, or hopeless: not at all 3. Trouble falling or staying asleep, or sleeping too much: not at all 4. Feeling tired or having little energy: not at all 5. Poor appetite or overeating: not at all 6. Feeling bad about yourself - or that you are a failure or have let yourself or your family down: not at all 7. Trouble concentrating on things, such as reading the newspaper or watching television: not at all 8. Moving or speaking so slowly that other people could have noticed. Or the opposite - being so fidgety or restless that you have been moving around a lot more than usual: not at all 9. Thoughts that you would be better off or of hurting yourself in some way: not at all Total score: 0 Depression Screening Interpretation: Negative Depression Screening Done: Yes Source: Developed by Drs. Devonte Oakley, Angelita Renner, Serge Whitaker and colleagues, with an educational jasiel from [employer]. Thrive Questionnaire Date Thrive assessed: 07/30/24 I am a: Patient What is your living situation today?: I have a steady place to live Within the past 12 months, did the food you bought not last and you didn't have the money to get more?: I choose not to answer this question Within the past 12 months, did you worry whether your food would run out before you got money to buy more?: I choose not to answer this question Do you have trouble paying for medicines?: No Do you have trouble getting transportation to medical appointments?: No Do you have trouble paying your heating and electricity bill?: No Do you have trouble taking care of your child, family member or friend?: No Do you have trouble with day-to-day activities such as bathing, preparing meals, shopping, managing finances, etc.?: No Are you currently unemployed and looking for a job?: No Are you interested in more education?: No Please select the resources that you would like help with: None Currently or been in a relationship where the following occur: I choose not to answer THRIVE Score: 0 AUDIT C Alcohol Use Questionnaire (AUDIT-C) 1. How often do you have a drink containing alcohol?: Never Total Score: 0 CARL-7 AMB Questionnaire CARL-7 Date CARL - 7 assessed: 07/30/24 Feeling nervous, anxious, or on edge: 0 = Not at all Not being able to stop or control worryin = Not at all Worrying too much about different things: 0 = Not at all Trouble relaxin = Not at all Being so restless that it is hard to sit still: 0 = Not at all Becoming easily annoyed or irritable: 0 = Not at all Feeling afraid as if something awful might happen: 0 = Not at all Total CARL-7 score (0-4 normal; 5-9 mild; 10-14 moderate; 15-21 severe): 0 Source: Developed by Drs. Devonte Oakley, Angelita Renner, Serge Whitaker and colleagues, with an educational jasiel from [employer]. Review of Systems Const Denies chills, Denies fever(s), Denies headache(s) and Denies weakness Eyes Denies change in vision ENT Denies dizziness, Denies otalgia, Denies headache(s) and Denies nasal congestion Card Denies chest pain, Denies syncope and Denies dyspnea Resp Denies cough and Denies dyspnea GI Reports as per HPI and Denies abdominal pain Reports no additional complaints Musc Reports as per HPI, Denies numbness and Denies tingling Skin/Breast Denies rash Neuro Denies dizziness, Denies syncope, Denies headache(s), Denies numbness, Denies tingling and Denies weakness Psych Reports no additional complaints Endo Reports no additional complaints Mika/Lymph Reports no additional complaints Aller/Immun Reports no additional complaints Physical exam (Primary Care) Vital Signs: Last Vital Signs Temp 98.0 F 02/19/25 13:51 Pulse 78 02/19/25 13:51 Resp 15 02/19/25 13:51 BP 132/76 02/19/25 13:51 Pulse Ox 98 02/19/25 13:51 Oxygen Delivery Method Room Air 02/19/25 13:51 BMI result Body Mass Index 19.7 Tobacco/Smoking Status: Tobacco use Status Tobacco use date assessed 02/19/25 02/19/25 13:50 Patient Tobacco Use Status Former Tobacco user 02/19/25 13:50 e-Cigarette/Vaping Use Never Used 02/19/25 13:50 PHQ-9: PHQ-9 Score PHQ-9: Total score 0 02/19/25 14:41 Depression Screening Interpretation: Negative Thrive Assessment: Date of Thrive Assessment Date Thrive assessed 07/30/24 02/19/25 13:50 Currently or been in a relationship where the following occur: I choose not to answer Const Other: Alert oriented x3, no acute cardiorespiratory distress noted ambulatory with normal gait [facility] General nose exam: Normal external nose present Mouth: Normal oral and palatal mucosa present and moist mucous membranes Eyes General: appearance normal, both eyes and all related structures Neck Neck: Yes full ROM, Yes no lymphadenopathy and Yes supple Resp Auscultation: clear to auscultation bilaterally Cardio Other: S1 and S2 present regular rate and rhythm GI Other: Normal bowel sounds, soft, nontender, no mass palpated General: Yes no CVA tenderness Back/Spine/Pelvis Back: no CVA tenderness Skin General skin exam: no rashes or lesions noted Neuro General: gait normal, Normal light touch and pain sensation, no focal motor deficits, CN's II-XI intact bilaterally and normal sensation to monofilament Extrem General: Yes normal to inspection, Yes full ROM, Yes no joint enlargement, Yes no pedal edema, Yes no calf tenderness and Yes normal gait Psych Appearance: grossly normal Mental Status: mental status grossly normal Speech and movement: Normal speech and movement present Affect: normal affect Coding Level of Care Code Est Pt Level 4 (61179) Complex EM visit Add On G2211 Diagnoses Aneurysm of posterior inferior cerebellar artery I67.1 Muscle pain M79.10 Anemia due to acute blood loss D62 Anemia type: other cause Other causes of anemia: acute posthemorrhagic Hypocalcemia E83.51 History of spontaneous subarachnoid intracranial hemorrhage Z86.79 Time Spent (min) 40 Comment Reviewed, discussed with pt from [facility] and Assessment & Plan Assessment & Plan (1) Aneurysm of posterior inferior cerebellar artery: Code(s): I67.1 - Cerebral aneurysm, nonruptured Category: Medical Plan: Status post coil embolization of left distal PICA aneurysm. Continued on Keppra for possible seizure episode. Patient has been advised not to drive until seizure-free for six-months (2) Muscle pain: Code(s): M79.10 - Myalgia, unspecified site Plan: Likely from simvastatin 40 mg daily, advised to stop taking medicine, will check total CK level (3) Anemia: Code(s): D64.9 - Anemia, unspecified Qualifiers: Anemia type: other cause Other causes of anemia: acute posthemorrhagic Qualified Code(s): D62 - Acute posthemorrhagic anemia Plan: Check iron profile repeat CBC, advised to start taking iron supplements, prescription sent, may take Colace 100 mg once a day if develops constipation while taking iron supplement. (4) Hypocalcemia: Code(s): E83.51 - Hypocalcemia Plan: Will check repeat serum calcium (5) History of spontaneous subarachnoid intracranial hemorrhage: Code(s): Z86.79 - Personal history of other diseases of the circulatory system Category: Medical Plan: Status post coil embolization of left distal PICA aneurysm, has an appointment for follow-up with Neurology, Dr.Janhvi Cotto, tomorrow at [facility] neurology clinic. Orders: Orders Creatine Kinase Total 02/19/25 D64.9 - Anemia, unspecified, E83.51 - Hypocalcemia, M79.10 - Myalgia, unspecified site Complete Blood Count Auto Diff 02/19/25 D64.9 - Anemia, unspecified, E83.51 - Hypocalcemia, M79.10 - Myalgia, unspecified site Basic Metabolic Panel 02/19/25 D64.9 - Anemia, unspecified, E83.51 - Hypocalcemia, M79.10 - Myalgia, unspecified site IRON PROFILE 02/19/25 D64.9 - Anemia, unspecified, E83.51 - Hypocalcemia, M79.10 - Myalgia, unspecified site Medications: New ferrous fumarate 325 mg PO DAILY 90 tabs 0RF D64.9 - Anemia, unspecified
[2025-02-19 13:51] VITALS: BP 132/76; PULSE 78; RESP 15; TEMP 36.7; O2SAT 98; BMI 19.7
--- OUTSIDE RECORDS SUMMARY | 2025-02-19 16:11 | XMS_ITS | Clinical Summary ---
Author Organization [facility] Address [address] [place] [address] Phone Care Team Providers Care Powerhouse Mechanic Helper Name Role Phone Physician, No Pcp Primary Care Provider Unavaila ble Allergies No known active allergies Medications No known medications Active Problems No known active problems Encounters Date Type Department Care Team Description 01/27/2025 9:27 PM EDT - 01/28/2025 12:12 AM EDT Emergency [facility] Emergency [address] [place] [address] Discharge Disposition: Left Against Medical [...] 1988 Zoster Vaccines (1 of 2) 2017 Depression Screening 06/12/2024 Cholesterol Screening (Lipid Panel) 01/27/2025 Colorectal Cancer Screening: Colonoscopy 01/27/2025 HIV Screening 01/27/2025 Hepatitis C Screening 01/27/2025 Social Influencers of Health Screening 01/27/2025 COVID-19 Vaccine (1 - 2023-2 5 season) 2025 Influenza Vaccine (#1) 2025 HIB Vaccines Aged [...] Last 3 Months Insurance PLAN Care Teams Powerhouse Mechanic Helper Relationship Specialty Start Date End Date Physician, No Pcp PCP - General 01/28/25
== END 2025-02-19 14:46 | disposition home or self-care (01) ==
LOC: HO.HMCC 13:10
PROVIDERS: PCP Internal Medicine; Visit Provider Internal Medicine
DX: I67.1 Cerebral aneurysm, nonruptured (principal); M79.10 Myalgia, unspecified site; D62 Acute posthemorrhagic anemia; E83.51 Hypocalcemia; Z86.79 Personal history of other diseases of the circulatory system

== ENCOUNTER → 2025-02-19 13:10 | Outpatient (BNVA) | payer OTHER, SELFPAY | PROVIDERS: PCP Internal Medicine; Visit Provider Internal Medicine | DX: I67.1 Cerebral aneurysm, nonruptured (principal); M79.10 Myalgia, unspecified site; D62 Acute posthemorrhagic anemia; E83.51 Hypocalcemia; Z86.79 Personal history of other diseases of the circulatory system; Z13.31 Encounter for screening for depression | CPT/HCPCS: 99212 ==

== ENCOUNTER 2025-02-24 10:51 | Outpatient (REF) | payer OTHER, SELFPAY ==
[2025-02-24 13:27] LABS: MANUAL DIFF FLAG NO
[2025-02-24 13:33] LABS: Hematocrit 37.7 % (37.0-47.0); Hemoglobin 12.0 g/dl (12.0-16.0); Imm Gran Abs Auto 0.01 X10*3/uL (0.00-0.03); Imm Gran Pct Auto 0.2 % (0.0-0.4); Lymphocytes Absolute Auto 1.6 X10*3/uL (1.2-4.9); Mean Corpuscular HGB Conc 31.8 g/dl (31.0-35.0); Mean Corpuscular Hemoglobin 30.4 pg (27.0-33.0); Mean Corpuscular Volume 95.4 fL (80.0-98.0); NRBC Abs Auto 0.000 X10*3/uL (0.0-0.012); NRBC Pct Auto 0.0 /100WBC (0.0-0.2); Platelet Count 320 X10*3/uL (160-400); Red Blood Count 3.95 X10*6/uL (4.20-5.50); White Blood Count 5.3 X10*3/uL (4.8-10.8)
[2025-02-24 13:47] LABS: Anion Gap 14 (12-20); Blood Urea Nitrogen 13 mg/dL (9-16); Calcium 9.7 mg/dL (8.4-10.2); Carbon Dioxide 28 mmol/L (22-29); Chloride 107 mmol/L (96-108); Estimated Glomerular Filt Rate > 60; Iron 71 mcg/dL (30-160); Percent Iron Saturation 27 % (15-50); Potassium 5.6 mmol/L (3.3-5.1); Sodium 143 mmol/L (135-145); Total Iron Binding Capacity 262 mcg/dL (228-428); Unsaturated Iron Binding 191 ug/dL
--- OUTSIDE RECORDS SUMMARY | 2025-02-24 14:25 | XMS_ITS | Clinical Summary ---
Author Organization [facility] Address [address] [place] [address] Phone Care Team Providers Care Steel Wheel Engraver Name Role Phone Physician, No Pcp Primary Care Provider Unavaila ble Allergies No known active allergies Medications No known medications Active Problems No known active problems Encounters Date Type Department Care Team Description 01/27/2025 9:27 PM EDT - 01/28/2025 12:12 AM EDT Emergency [facility] Emergency [address] [place] [address] Discharge Disposition: Left Against Medical [...] Last 3 Months Insurance PLAN Care Teams Steel Wheel Engraver Relationship Specialty Start Date End Date Physician, No Pcp PCP - General 01/28/25
== END 2025-02-24 10:52 | disposition home or self-care (01) ==
LOC: HO.HMGCLDS 10:51
PROVIDERS: PCP Internal Medicine; Visit Provider Internal Medicine
DX: E83.51 Hypocalcemia (principal); M79.10 Myalgia, unspecified site; D64.9 Anemia, unspecified
CPT/HCPCS: 36415; 80048; 82550; 83540; 85025

== ENCOUNTER 2025-02-27 10:36 | Outpatient (REF) | payer OTHER, SELFPAY ==
--- OUTSIDE RECORDS SUMMARY | 2025-02-27 12:43 | XMS_ITS | Clinical Summary ---
Author Organization [facility] Address [address] [place] [address] Phone Care Team Providers Care Dish Network Installer Name Role Phone Physician, No Pcp Primary Care Provider Unavaila ble Allergies No known active allergies Medications No known medications Active Problems No known active problems Encounters Date Type Department Care Team Description 01/27/2025 9:27 PM EDT - 01/28/2025 12:[address] [facility] Emergency [address] [place] [address] Discharge Disposition: Left Against Medical [...] 5 season) 2025 Influenza Vaccine (#1) 2025 RSV Immunization Adult Patie nts (1 - 1-dose 75+ series) 2042 HIB Vaccines Aged Out No longer eligi [...] Granger MD on 01/27/2025 22:26:[address] PROCEDURES Final Result from Last 3 Months Insurance [facility] [place] [address] Care Teams Dish Network Installer Relationship Specialty Start Date End Date Physician, No Pcp PCP - General 01/28/25
== END 2025-02-27 10:37 | disposition home or self-care (01) ==
LOC: HO.HMGCLDS 10:36
PROVIDERS: PCP Internal Medicine; Visit Provider Internal Medicine
DX: E78.5 Hyperlipidemia, unspecified (principal); R53.83 Other fatigue
CPT/HCPCS: 36415; 84132; 84443

== ENCOUNTER 2025-03-27 13:07 | Outpatient (AMB) | payer OTHER, SELFPAY ==
--- NOTE | 2025-03-27 13:16 | MHC.OFFVIS ---
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 Sales Utility Representative concerns: left labia irritation, rash. Currently sexually active w/. STI testing offered; she declines. Attempting to eat a healthy diet with calcium and vitamin D and stays active with exercise-walk. Last pap smear; 2022, negative. Last mammogram; 2024. ColoGard is UTD. Denies any family history of breast, ovarian or colon cancer. [facility] Medical History History of aphasia Aneurysm of posterior inferior cerebellar artery History of colitis History of spontaneous subarachnoid intracranial hemorrhage Former smoker Heartburn Epistaxis, recurrent Surgical History Status post coil embolization of cerebral aneurysm History of esophagogastroduodenoscopy (EGD) No pertinent past surgical history Family History Maternal Grandmother Alzheimers disease Social History Housing: House Alcohol intake: current Alcohol intake frequency: does not drink Patient Tobacco Use Status: Former Tobacco user Years Smoked: 30 e-Cigarette/Vaping Use: Never Used Second Hand Smoke Exposure: No Advance Directives Date on File: 06/10/24 Current occupational status: unemployed Cognitive needs: No Hearing needs: No Vision needs: No Female Reproductive History Menstrual Age of Menarche: 19 control method: other (vasectomy) Total pregnancies: 1 Full term: 1 Number of Living Children: 1 Date of last pap smear: 08/16/22 (neg pap and hpv) Date of Mammogram: 08/27/24 (Birad 1) Review of Systems Const All systems reviewed & are unremarkable except as noted in HPI and below Reports as per HPI Eyes Reports no additional complaints ENT Reports no additional complaints Card Reports no additional complaints Resp Reports no additional complaints GI Reports as per HPI and Reports no additional complaints Reports as per HPI Musc Reports no additional complaints Skin/Breast Reports as per HPI Neuro Reports no additional complaints Psych Reports no additional complaints Endo Reports no additional complaints Mika/Lymph Reports no additional complaints Aller/Immun Reports no additional complaints Physical Exam Vital Signs: Last Vital Signs BP 122/66 03/27/25 13:17 BMI result Body Mass Index 18.8 Const General: cooperative, healthy appearing, no acute distress, well developed and alert Orientation/consciousness: patient oriented x3 HEENT Head: Yes normal to inspection Eyes General: appearance normal, both eyes and all related structures Neck Neck: Yes normal visual inspection Thyroid: Thyroid normal Chest Chest palpation & inspection: normal inspection of the chest and other (no puckering, dimpling, peau de orange, retraction, discharge, masses) Breast/axilla inspection: normal inspection of the breasts Breast/axilla palpation: normal palpation of the breasts Resp Effort & Inspection: normal respiratory effort GI Inspection: Yes normal to inspection Palpation (GI): Soft to palpation Rectal Exam - Female: deferred Other: External: Raised, reddened, crusted lesions, clustered left labia, extending to perineal and perianal region General: Yes bladder normal to palpation External Female Exam: normal external appearance and normal appearance of the urethra Speculum Exam - Vagina: normal appearance of the vagina, normal palpation and normal vaginal discharge Speculum Exam - Cervix: normal appearance of the cervix and normal palpation Bimanual exam- vagina & uterus: normal bimanual exam, normal palpation, uterine size normal, bladder normal to palpation, normal palpation and non-tender Bimanual Exam- Adnexa, other: no masses Skin General skin exam: no rashes or lesions noted Rashes: no rashes Neuro General: patient oriented x3 Cognition (Neuro): normal cognition Extrem General: Yes normal to inspection Psych Attitude: cooperative Thought process: Normal thought process present Assessment & Plan Assessment & Plan (1) Well woman exam with routine gynecological exam: Code(s): Z01.419 - Encounter for gynecological examination (general) (routine) without abnormal findings Category: Medical Plan: Discussed: Current recommendations for pap smears per ASCCP guidelines. Breast awareness, periodic self breast exams and yearly mammogram. Maintain a healthy lifestyle, well balanced diet including Calcium 1,200 mg and Vitamin D 600 IU daily, and routine exercise. Contact the office with any postmenopausal bleeding. Patient verbalizes understanding and agrees to the plan of care. She was given opportunity to ask questions and all questions were answered to the best of my ability. RTO in 1 year for annual vice president of customer service exam. This note is constructed using voice recognition software. While every effort has been made to ensure accuracy, magazine grinder loader errors may have been included. (2) Skin rash: Code(s): R21 - Rash and other nonspecific skin eruption Plan Skin rash appears like psoriasis, plan short term corticosteroid. Follow up in 1 month, or call sooner if any concerns. Patient reports she has a tub attendant at Dr. Murry is office who she sees for yearly checks. The patient expressed understanding and agreement with the plan of care. All of her questions and concerns were addressed to the best of my ability. Medications: New clobetasol 0.05% Start with twice a day for one week, then one a day for one week, then twice a week, not to be used with other topical cortisone cream in the area at the same time 1 g topical .twice weekly 45 grams 1RF 90 days Coding Level of Care Code Est Pt Prev Care 40-64y(57735) Diagnoses Well woman exam with routine gynecological exam Z01.419 Skin rash R21
[2025-03-27 13:17] VITALS: BP 122/66; BMI 18.8
--- OUTSIDE RECORDS SUMMARY | 2025-03-27 16:24 | XMS_ITS | Clinical Summary ---
Author Organization [facility] Address [address] [place] [address] Phone Care Team Providers Care Bag Bleacher Name Role Phone Physician, No Pcp Primary Care Provider Unavaila ble Allergies No known active allergies Medications No known medications Active Problems No known active problems Encounters Date Type Department Care Team Description 01/27/2025 9:27 PM EDT - 01/28/2025 12:12 AM EDT Emergency [facility] Emergency [address] [place] [address] Discharge Disposition: Left Against Medical [...] Last Done Comments Breast Cancer Screening 1967 Colorectal Cancer Screening: Colonoscopy 1967 DTaP,Tdap,and Td Vaccines (1 - Tdap) 1986 Hepatitis B Vaccines (1 of 3 - 19+ 3-dose series) 1986 Pneumococcal Vaccine: 50+ Ye ars (1 of 2 - PCV) 1986 Cervical Cancer Screening: P ap Smear 1988 Zoster Vaccines (1 of 2) 2017 Depression Screening 06/12/2024 Cholesterol Screening (Lipid Panel) 01/27/2025 HIV Screening 01/27/2025 Hepatitis C Screening [...] Final Result from Last 3 Months Insurance [facility] PLAN Care Teams Bag Bleacher Relationship Specialty Start Date End Date Physician, No Pcp PCP - General 01/28/25
== END 2025-03-27 14:14 | disposition home or self-care (01) ==
LOC: HO.HWS 13:08
PROVIDERS: PCP Internal Medicine; Visit Provider Advanced Practice Midwife
DX: Z01.419 Encounter for gynecological examination (general) (routine) without abnormal findings (principal); R21 Rash and other nonspecific skin eruption
CPT/HCPCS: 99396; 99459

== ENCOUNTER → 2025-03-27 13:07 | Outpatient (BNVA) | payer OTHER, SELFPAY | PROVIDERS: PCP Internal Medicine; Visit Provider Advanced Practice Midwife | DX: Z01.419 Encounter for gynecological examination (general) (routine) without abnormal findings (principal); R21 Rash and other nonspecific skin eruption | CPT/HCPCS: 99396 ==

== ENCOUNTER 2025-05-21 12:42 | Outpatient (AMB) | payer OTHER, SELFPAY ==
--- NOTE | 2025-05-21 12:45 | A.OFFVIS_ITS ---
Vital Signs 05/21/25 12:46 Height 5 ft 7 in Weight 123 lb BMI 19.3 BP 100/64 Blood Pressure Location Lt brachial Position Sitting Pulse 79 Intake Visit Reasons: increased weight loss after hospital stay Intake Note: patient follow up for increased weight loss after hospital stay. Patient cc: rectal dryness, denies any other GI issues. Physician Credentialing Specialist Required: No Accompanied by: Self / Same As Patient Allergies No Known Allergies Allergy (Verified 05/21/25 12:45) HPI HPI increased weight loss after hospital stay: Details: Assessment & Plan (1) Abdominal bloating: Code(s): R14.0 - Abdominal distension (gaseous) Category: Medical (2) Heartburn: Code(s): R12 - Heartburn Category: Medical Plan This is my 1st contact with the patient she says that her abdominal pain has resolved. She c/o gas trapping that is painful in the RUQ. US okay. GERD controlled on pantoprazole qd and she takes TUMS for breakthrough. A LOT of flatulence. no burping. TX possible SIBO if not successful consider creon etc. ROV 8 weeks. Medications: New metronidazole 500 mg PO TID 30 tabs 0RF 10 days Changed From pantoprazole 40 mg PO DAILY PRN 270 tabs 0RF for heartburn R12 - Heartburn To pantoprazole 40 mg PO DAILY 90 tabs 1RF for heartburn R12 - Heartburn TODAY'S VISIT [facility] Medical History History of aphasia Aneurysm of posterior inferior cerebellar artery History of colitis History of spontaneous subarachnoid intracranial hemorrhage Former smoker Heartburn Epistaxis, recurrent Surgical History Status post coil embolization of cerebral aneurysm History of esophagogastroduodenoscopy (EGD) No pertinent past surgical history Family History Maternal Grandmother Alzheimers disease Social History Housing: House Alcohol intake: current Alcohol intake frequency: does not drink Patient Tobacco Use Status: Former Tobacco user Years Smoked: 30 e-Cigarette/Vaping Use: Never Used Second Hand Smoke Exposure: No Advance Directives Date on File: 06/10/24 Current occupational status: unemployed Cognitive needs: No Hearing needs: No Vision needs: No Female Reproductive History Menstrual Age of Menarche: 19 Review of Systems ENT Reports Normal hearing present Neuro Reports Normal hearing present and Denies Abnormal speech present Physical Exam Vital Signs: Last Vital Signs Pulse 79 05/21/25 12:46 BP 100/64 05/21/25 12:46 BMI result Body Mass Index 19.3 Const General: cooperative, no acute distress, well developed and well groomed Nutritional Appearance: well nourished and thin Orientation/consciousness: oriented to person, oriented to place and oriented to time Limitations: No language barrier HEENT Head: Yes normocephalic and Yes atraumatic Eyes Other: Glasses General: appearance normal, both eyes and all related structures Pupils: Equal, round and reactive pupils present Neck Neck: Yes normal visual inspection and Yes no lymphadenopathy Thyroid: Thyroid normal Resp Effort & Inspection: normal respiratory effort and able to speak in complete sentences Auscultation: clear to auscultation bilaterally Cardio Rate: regular rate Rhythm: regular rhythm Heart sounds: Normal, physiologic split S2 sound present Peripheral pulses: radial pulses present and posterior tibial pulses present GI Inspection: No distended and No Abdominal panniculus present Palpation (GI): Soft to palpation, nontender, no guarding, not rigid and No hepatosplenomegaly present Percussion: Yes normal to percussion Auscultation: normal bowel sounds Rectal Exam - Female: deferred Skin General skin exam: no rashes or lesions noted, turgor normal, skin not dry, no jaundice, No spider nevi and no striae Rashes: no rashes Nails: normal Neuro General: oriented to person, oriented to place and oriented to time Cranial nerves: Yes Equal, round and reactive pupils present and Yes Normal hearing present Speech: No Abnormal speech present Extrem General: Yes normal to inspection, No clubbing, No cyanosis and No edema Psych Appearance: grossly normal and well kempt Mental Status: mental status grossly normal Speech and movement: Normal speech and movement present Affect: normal affect Attitude: cooperative Thought process: Normal thought process present and not confabulating Thought content: Normal thought content present Insight: Good insight present (Psych) Judgement: Good judgement present (Psych) Assessment & Plan Assessment & Plan (1) Heartburn: Code(s): R12 - Heartburn Category: Medical (2) Rectal irritation: Code(s): K62.89 - Other specified diseases of anus and rectum Category: Medical (3) Encounter for colorectal cancer screening using Cologuard test: Comment: does this though the PCP last 08/2022 neg Code(s): Z12.11 - Encounter for screening for malignant neoplasm of colon; Z12.12 - Encounter for screening for malignant neoplasm of rectum Category: Medical Plan Subjective Follow-up visit for GERD. Patient reports pantoprazole has been working very well with only occasional use of Tums. Prior intermittent gas symptoms resolved after a course of metronidazole; bowel habits currently normal with soft stools and no constipation or rectal bleeding. Notes occasional perianal/rectal chapping. Reports hospitalization in January for severe E. coli colitis with significant hematochezia; recovered fully. During that hospitalization there was concern for a neurologic event; neurology suspects seizure related to severe infection, and patient has been on antiseizure medication with plan for dioni ssessment in June. She also had postoperative aneurysm care, possible pneumonia, and thrush at that time, all resolved. Most recent blood work has returned to normal per patient. Performs colorectal cancer screening with Cologuard; last completed August 2022 and was negative. Relevant Past Medical, Social, and Family History - History of severe E. coli colitis (January) with GI bleeding; resolved. - History of aneurysm status post surgery. - Possible pneumonia and thrush during prior hospitalization; resolved. - Possible seizure during acute illness; on antiseizure medication with neurology follow-up planned. Objective - Blood pressure normal today per in-clinic check. - Prior CT during hospitalization showed diffuse colonic inflammation. - Cologuard completed August 2022: negative. Assessment & Plan Gastroesophageal reflux disease (GERD), well controlled: Symptoms well managed on pantoprazole with occasional Tums as needed. No alarm features reported. - Renew pantoprazole. - Continue current regimen; use antacid as needed for breakthrough symptoms. - Return sooner if dysphagia, odynophagia, unintended weight loss, persistent vomiting, or GI bleeding occur. History of E. coli colitis with prior GI bleeding, resolved: Currently asymptomatic with normal bowel habits. - Education provided regarding red flags; seek emergency care for copious rectal bleeding and contact clinic for any recurrence of blood per rectum, fever, severe abdominal pain, or persistent diarrhea. Perianal skin irritation/chafing: Intermittent irritation without bleeding. - Provided sample of Calmoseptine; recommend OTC Calmoseptine as a moisture barrier as needed. - Petroleum jelly acceptable alternative barrier. Colorectal cancer screening: Cologuard negative August 2022; next due August 2025. - Continue stool DNA screening; plan to coordinate next kit with primary care around due date. Follow-up: Annual visit given stability; sooner as needed. Medications: Refilled pantoprazole 40 mg PO DAILY 90 tabs 1RF for heartburn R12 - Heartburn Coding Level of Care Code Est Pt Level 3 (80332) Diagnoses Heartburn R12 Rectal irritation K62.89 Encounter for colorectal cancer screening using Cologuard test Z12.11; Z12.12
[2025-05-21 12:46] VITALS: BP 100/64; PULSE 79; BMI 19.3
--- OUTSIDE RECORDS SUMMARY | 2025-05-21 19:27 | XMS_ITS | Clinical Summary ---
Author Organization [facility] Address [address] [place] [phone] Phone Care Team Providers Care Cross Enterprise Integrator Name Role Phone Physician, No Pcp Primary Care Provider Unavaila ble Allergies No known active allergies Medications No known medications Active Problems No known active problems Social History Tobacco Use Types Packs/Day Years Used Date Smoking Tobacco: Every Day Cigarettes Smokeless Tobacco: Never Tobacco Cessation:Ready to Q uit: Not Asked; Counseling Given: Not Answered Comments Unknown Sex and Gender Information Value Date Recorded Sex Assigned at Not on file Legal Sex Female 9:24 PM EDT Gender Identity Not on file Sexual Orientation Not on file Last Filed Vital Signs Vital Sign Reading [...] Health Screening 01/27/2025 COVID-19 Vaccine (1 - 2024-2 6 season) 2025 Influenza Vaccine (#1) 2025 RSV [...] on patient's age to complete this [place] [id number] Care Teams Cross Enterprise Integrator Relationship Specialty Start Date End Date Physician, No Pcp PCP - General 01/28/25
--- OUTSIDE RECORDS SUMMARY | 2025-05-21 19:28 | XMS_ITS | Data Portability ---
Author Organization [place] - [facility], Allergy Address [address] [place] [phone] Care Team Providers Care Metal Treater Name Role Phone JYOTI GIANNI Referring Provider [phone] Assessment No assessment recorded. Plan of Treatment Reminders Order Date Submit Date Provider Last Modified By Organization Details Last Modified Time Details Appointments None record ed. Lab None record ed. Referral None record ed. Procedures None record ed. Surgeries None record ed. Imaging None record ed. Medication Orders None record ed. Patient TargetsNo targets recorded. Patient InstructionsNo instructions recorded. Reason for Referral None Reported. Results Created Date Observation Date Name Description Value Unit Range Abnormal Flag Note LastModifiedBy Organization Detail LastModifiedTime 03/12/20 25 audio gram No observ ation record ed. BARCODE Not Available 2024 09:11:43 Result Notes None recorded. Problems Name Problem SNOMED Code Status Onset Date Resolution Date Notes Provider Name and Address Organization Details Recorded Time Abnormal auditory perception 74182831 Active 2024 MATT TALAMANTES [address], [address], [facility] 5 14:15:30 Impacted cerumen of bilateral ears 4478822419927 108 Active 2024 MARCIA Hare MD [address] [place] [address], [phone], [facility] 5 14:27:24 Problem Notes None recorded. Procedures Surgical History Date Name Laterality Status Provider Name and Address Organization Details Recorded Time 5 Cerumen removal with microscope bilateral completed MARCIA ROBLEDO MD [address] [place], [place] [address], [place], [address], [place] - [facility] 03/11/2025 14:27:03 Air & Speech Audio with Tymps - 33631, 28987 & [id number] completed MATT TALAMANTES 100 [facility], [place], [address], [place] - [facility] 03/11/2025 14:15:19 Imaging Results None recorded. Procedure Notes None recorded. Medical Equipment None Reported. Medications Name Sig Start Date Stop Date Status Note LastModified by Organization Details LastModified Time cyclobenzap rine 10 mg tablet TAKE 1 TABLET ORALLY 3 TIMES A DAY NEEDED FOR MUSCLE SPASM active Not Available Not Available No t Available tizanidine 4 mg tablet TAKE 1 TABLET ORALLY 2 TIMES A DAY NEEDED FOR MUSCLE SPASTICIT Y active Not Available Not Available No t Available metronidazo le 500 mg tablet TAKE 1 TABLET ORALLY 3 TIMES A DAY FOR 10 DAYS 03/10 completed Not Available Not Available Not Available prochlorper azine maleate 10 mg tablet TAKE 1 TABLET BY MOUTH EVERY 6 HOURS NEEDED FOR NAUSEA AND VOMITING active Not Available Not Available No t Available simvastatin 40 mg tablet TAKE 1 TABLET BY MOUTH EVERY DAY AT BEDTIME active Not Available Not Available No t Available ketorolac 10 mg tablet TAKE 1 TABLET BY MOUTH EVERY 6 HOURS NEEDED FOR PAIN FOR MAX DURATION OF 5 DAYS active Not Available Not Available No t Available pantoprazol e 40 mg tablet,bernarda yed release TAKE 1 TABLET ORALLY DAILY FOR FOR HEARTBURN active Not Available Not Available No t Available neomycin-po lymyxin-dex ameth 3.5 mg/mL-10,00 0 unit/mL-0.1 % eye drops INSTILL ONE DROP INTO THE LEFT EYE FOUR TIMES DAILY FOR ONE WEEK, PEGGY 03/10 completed Not Available Not Available Not Available levetiracet am 750 mg tablet TAKE 1 TABLET BY MOUTH TWO TIMES A DAY active Not Available Not Available No t Available ondansetron 4 mg disintegrat ing tablet DISSOLVE 1 TABLET ON RONGUE EVERY 8 HOURS NEEDED FOR NAUSEA AND VOMITING active Not Available Not Available No t Available diazepam 5 mg tablet TAKE 1 TABLET BY MOUTH 3 TIMES A DAY NEEDED FOR PAIN, MODERATE active Not Available Not Available No t Available Ferrocite 324 mg (106 mg iron) tablet TAKE 1 TABLET BY MOUTH DAILY active Not Available Not Available No t Available Vitals Date Recorded Body height Body mass index (BMI) Body weight Provider Name and Address Organization Details Last Updated DateTime 03/11/2025 170.18 cm 17.9 kg/m2 19170.53 g Dharmesh Martinez [place] - [facility] 03/11/2025 14:01:10 Social History None recorded. Functional Status None recorded. Mental Status None recorded. Family History Nothing Reported. Medical History No medical history recorded. Gynecological HistoryNo gynecological history recorded. Obstetrics History GPAL:G 0 P 0 0 0 0 Past Encounters Encounter ID Performer Location Encounter Start Date Encounter Closed Date Diagnosis/Indication Diagnosis SNOMED-CT Code Diagnosis ICD10 Code Diagnosis IMO Codes Diagnosis Note [id number] MARCIA ROBLEDO MD [facility] [address] [address] 03/11/2025 13:18:10 03/11/2025 14:39:35 Abnormal auditory perception 55955567 H93.292 [id number] Audiologic al evaluation results: Normal auditory thresholds with excellent speech discrimina tion, AU.Tympano metry:Righ t Ear:Type ALeft Ear:Type C hearing was normal. Gave reassuranc e. Impacted c erumen of bilateral ears 2348623310 853299 H61.23 [id number] Recurrent Cerumen Impactions : Ears were meticulous ly cleaned bilaterall y today with a curette and suction. The patient tolerated this well and will follow up for repeat debridemen t per routine. Health Concerns Section Related Observation LastModified by Organization Detai ls LastModified Time None Recorded Concern Status LastModified by Organization Details LastModified Time None Recorded Advance Directives Directive None Recorded Payers Insurance Date Sequence Insurance Name Policy Number Policy Acuña Covered Member ID Acuña Member ID Guarantor Name 03/11/2025 1 [facility] - HEALTH NET PLAN (MEDICAID HMO) FELIPE Tomas [id number] Francesca Tomas OBGyn Episode No OBEpisode recorded.
--- OUTSIDE RECORDS SUMMARY | 2025-05-21 19:28 | XMS_ITS | Continuity of Care Document ---
Author Organization [place] - [facility], [facility] Address [address] [place] [phone] Care Team Providers Care Fleet Maintenance Foreman Name Role Phone GIANNI MONTES Referring Provider [phone] Assessment No assessment recorded. Plan of Treatment [...] Organization Details Recorded Time Abnormal auditory perception 64544973 Active 2024 MATT TALAMANTES [address], [address], [facility] - [facility] 5 14:15:30 Impacted cerumen of bilateral ears 5830928614816 108 Active 2024 MARCIA Hare MD [address] [place] [address], [phone], [facility] - [facility] 5 14:27:24 Problem Notes None recorded. Procedures Surgical History Date Name Laterality Status Provider Name and Address Organization Details Recorded Time Cerumen removal with microscope bilateral completed MARCIA ROBLEDO MD 100 [facility], [place], [address], [place] - [facility] 03/11/2025 14:27:03 Air & Speech Audio with Tymps - 54594, 76394 & 92596 completed MATT TALAMANTES 100 [facility], [place], [address], [place] - [facility] 03/11/2025 14:15:19 Imaging Results None recorded. Procedure [...] Updated DateTime 03/11/2025 170.18 cm 17.9 kg/m2 94649.53 g Dharmesh Martinez [place] - [facility] 03/11/2025 14:01:10 Social History None recorded. Functional Status None recorded. Mental Status None recorded. Family History Nothing Reported. Medical History No medical history recorded. Gynecological HistoryNo gynecological history recorded. Obstetrics History GPAL:G 0 P 0 0 0 0 Past Encounters Encounter ID Performer Location Encounter Start Date Encounter Closed Date Diagnosis/Indication Diagnosis SNOMED-CT Code Diagnosis ICD10 Code Diagnosis IMO Codes Diagnosis Note [id number] MARCIA ROBLEDO MD [facility] [address] [address] 03/11/2025 13:18:10 03/11/2025 14:39:35 Abnormal auditory perception 49388939 H93.292 [id number] Audiologic al evaluation results: Normal auditory thresholds with excellent speech discrimina tion, AU.Tympano metry:Righ t Ear:Type ALeft Ear:Type C hearing was normal. Gave reassuranc e. Impacted c erumen of bilateral ears 0095042152 077302 H61.23 [id number] Recurrent Cerumen Impactions : Ears were meticulous ly cleaned bilaterall y today with a curette and suction. The patient tolerated this well and will follow up for repeat debridemen t per routine. Health Concerns Section Related Observation LastModified by Organization Detai ls LastModified Time None Recorded Concern Status LastModified by Organization Details LastModified Time None Recorded Payers Encounter Date Sequence Insurance Name Policy Number Policy Acuña Covered Member ID Acuña Member ID Guarantor Name 03/11/2025 1 [facility] - HEALTH NET PLAN (MEDICAID HMO) FELIPE Tomas [id number] Francesca Tomas OBGyn Episode No OBEpisode recorded.
== END 2025-05-21 13:32 | disposition home or self-care (01) ==
LOC: HO.HGI 12:43
PROVIDERS: PCP Internal Medicine; Visit Provider Nurse Practitioner
DX: R12 Heartburn (principal); K62.89 Other specified diseases of anus and rectum; Z12.12 Encounter for screening for malignant neoplasm of rectum
CPT/HCPCS: 99213

== ENCOUNTER → 2025-05-21 12:42 | Outpatient (BNVA) | payer OTHER, SELFPAY | PROVIDERS: PCP Internal Medicine; Visit Provider Nurse Practitioner | DX: K62.89 Other specified diseases of anus and rectum (principal); R12 Heartburn; Z12.11 Encounter for screening for malignant neoplasm of colon; Z12.12 Encounter for screening for malignant neoplasm of rectum; Z79.899 Other long term (current) drug therapy | CPT/HCPCS: 99212 ==